=== PATIENT | male | born 1965 | race Caucasian/White ===

== ENCOUNTER → 2017-02-03 | Outpatient (CLI) | payer MEDICARE, MEDICAID ==
[~2017-02-03] MED LIST: ALLOPURINOL300 M1 PO; ASPIRIN 81MG TA81 MG PO; ATORVASTATIN CA10 M1 PO; CARVEDILOL 25MG25 MG PO; CIPRO 500MG TA500 MG PO; FLEXERIL10 MG PO; FUROSEMIDE 40MG40 M1 PO; GLIPIZIDE10 MG PO; Hydroxyzine10 MG PO; IBU-8800 MG PO; JANUVIA100 MG PO; K-DUR 20MEQ TA20 MEQ PO; LASIX20 MG PO; LISINOPRIL/HCTZ1 TA3 PO; LISINOPRIL2.5 M1 PO; LORATADINE 10MG10 M1 PO; LORTAB 5/500 501 TAB PO; LYRICA50 MG PO; MEDROL DOSEPAK4 MG PO; METFORMIN500 MG PO; MONODOX100 MG PO; NAPROSYN500 M1 PO; OMEPRAZOLE20 MG PO; PREDNISONE 20MG20 MG PO; SPIRONOLACTONE50 MG PO; TESSALON PERLE100 MG PO; TESSALON PERLE200 MG PO; TRAMADOL 50MG T50 MG PO; TRIAMCINOL15 GM/TUBE TP; VENTOLIN H0.09 MG/AC IH; VIBRAMYCIN 100100 MG PO; ZITHROMAX Z-PA250 M2 PO
[2017-02-03 09:47] LABS: BUN 30 mg/dL (7-18)
[2017-02-03 09:54] LABS: GFR (ESTIMATED) 54 ML/MIN (>60)
== END ==
LOC: LAB 08:56
PROVIDERS: Internal Medicine
DX: I42.9 Cardiomyopathy, unspecified (principal); I25.10 Atherosclerotic heart disease of native coronary artery without angina pectoris; I10 Essential (primary) hypertension; E11.9 Type 2 diabetes mellitus without complications

== ENCOUNTER → 2017-03-23 | Outpatient (CLI) | payer MEDICARE, MEDICAID ==
[~2017-03-23] MED LIST changes: +DEPO-TESTOS200 MG/M2 IM; +FUROSEMIDE80 M1 PO; +LOSARTAN POTAS100 MG PO; +ZESTRIL 5MG TABL5 MG PO
[2017-03-23 15:13] LABS: BUN 19 mg/dL (7-18)
[2017-03-23 15:17] LABS: GFR (ESTIMATED) 64 ML/MIN (>60)
== END ==
LOC: LAB 13:14
PROVIDERS: Internal Medicine
DX: I25.10 Atherosclerotic heart disease of native coronary artery without angina pectoris (principal); I10 Essential (primary) hypertension; E11.9 Type 2 diabetes mellitus without complications; G62.9 Polyneuropathy, unspecified

== ENCOUNTER 2017-03-28 22:19 | Emergency (ER) | payer MEDICARE, MEDICAID ==
[~2017-03-28] VITALS: Ht 180.3 cm; Wt 158.8 kg
[~2017-03-28 22:19] MED LIST changes: -FUROSEMIDE80 M1 PO
[2017-03-28] MEDS ORDERED: FUROSEMIDE80 M1 PO (22:32)
--- OUTSIDE RECORDS SUMMARY | 2017-03-28 22:51 | External Medical Summary Rpt ---
Author Author , LISA GONZALEZ Address Unknown Phone [email or web address] F?rsat Care Team Providers Care Supervisor Phosphoric Acid Name Role Phone [facility] Unavailable Unavailable [facility], [facility] Unavailable Unavailable SUP[facility], [facility] [employer] Unavailable Unavailable INC, [employer] PINZON BERNIE, PINZON BERNIE Unavailable Unavailable WARD TIFFANY, WARD Unavailable Unavailable TIFFANY RHODES, RHODES Unavailable Unavailable RHODES ALL, RHODES ALL Unavailable Unavailable SHEEHAN ERIBERTO, Unavailable Unavailable [facility] COOK MARGARITO, COOK MARGARITO Unavailable Unavailable CRISPEN FORD, CRISPEN Unavailable Unavailable FORD FRAZIER STEPHANIE, Unavailable Unavailable FRAZIER STEPHANIE JR DEMI, DEMI, Unavailable Unavailable JR QUEENIE, QUEENIE Unavailable Unavailable [facility] Unavailable Unavailable INC, [facility] Unavailable Unavailable HOSPITAL P, [facility], Unavailable Unavailable [facility] Unavailable Unavailable [facility], [facility] WILLIAM JR DWI, WILLIAM Unavailable Unavailable JR DWI ZULY GRE, Unavailable Unavailable ZULY GRE ZULY GRE, Unavailable Unavailable ZULY GRE JOVANY THOMAS ALISTAIR, Unavailable Unavailable MANZOKAEL THOMAS ALISTAIR [facility], Unavailable Unavailable PLL[facility], [facility], [facility] Un[facility] Un[facility], [facility] SCHACK BLADIMIR, SCHACK Unavailable Unavailable BLADIMIR ROBIN, ROBIN Unavailable Unavailable ROBIN STEPHANIE, ROBIN Unavailable Unavailable STEPHANIE SHANEHSAZ GLORIA, Unavailable Unavailable SHANEHSAZ GLORIA ERNESTO, ERNESTO Unavailable Unavailable ERNESTO MAT, Unavailable Unavailable ERNESTO MAT SOTINGEANU FLAQUITO, Unavailable Unavailable SOTINGEANU FLAQUITO [facility] Unavailable Unavailable [facility] Unavailable Unavailable HVAC REFRIGERATION TECHNICIAN ST[facility] HVAC REFRIGERATION TECHNICIAN ST [facility] Unavailable Unavailable PHYSICIANS, [facility] Unavailable Unavailable [facility]ANS EKG, [facility] E[facility], Unavailable Unavailable [facility], [facility], Unavailable Unavailable INC [facility], [facility], Unavailable Unavailable INC [facility] Unavailable Unavailable #584, [facility] Unavailable Unavailable #591, [facility] NADIA RUIZ Unavailable Unavailable FLAQUITO Purpose Continuity of Care Document - 11-22-2013 through 2016 Problems Code Diagnosis DOS Provider Status E1140 TYPE 2 DM 03-02-2017 A SPECIALTY WITH DIABETIC DIABETIC SUPPLIE NEUROPATHY UNSPECIFIED E1165 TYPE 2 03-02-2017 A SPECIALTY DIABETES DIABETIC MELLITUS SUPPLIE WITH HYPERGLYCEM IA E119 TYPE 2 02-19-2017 [facility] MELLITUS INC WITHOUT COMPLICATIO NS G629 POLYNEUROPA 02-19-2017 [facility] THY [facility] UNSPECIFIED INC I10 ESSENTIAL 02-19-2017 [facility] PRIMARY [facility] HYPERTENSIO INC N 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 [facility] 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 E1141 TYPE 2 02-16-2017 [facility] MELLITUS INC W/DIAB MONONEUROPA THY G71666 PAIN IN 02-16-2017 [facility], [facility] C80206 PAIN IN 02-16-2017 [facility] LEFT FOOT [facility], [facility] N289 DISORDER OF 02-16-2017 [facility], URETER [facility] UNSPECIFIED M47721 OTHER 02-11-2017 [facility] INC SPECIFIED ARTHRITIS RIGHT SHOULDER I5020 UNSPECIFIED 02-07-2017 [facility]ST[facility] CONGESTIVE GROUP HEART FAILURE M539 DORSOPATHY 01-25-2017 [facility], INC UNSPECIFIED M545 LOW BACK 01-25-2017 [facility] INC PAIN 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 [facility] N PHYSICIANS I255 ISCHEMIC 01-22-2017 ST CARDIOMYOPA [facility] THY PHYSICIANS I5022 CHRONIC 01-22-2017 ST SYSTOLIC [facility] CONGESTIVE PHYSICIANS HEART FAILURE Z6843 BODY MASS 01-22-2017 ST INDEX BMI ANNELIESE 50-59.9 PHYSICIANS ADULT G8929 OTHER 01-14-2017 ST CHRONIC [facility] PAIN PHYSICIANS M7541 IMPINGEMENT 01-14-2017 ST SYNDROME [facility] OF RIGHT PHYSICIANS SHOULDER N529 MALE 01-14-2017 ST ERECTILE [facility] DYSFUNCTION PHYSICIANS UNSPECIFIED R5382 CHRONIC 01-14-2017 ST FATIGUE ANN[facility] UNSPECIFIED PHYSICIANS S69585 PRESENCE 01-04-2017 [facility] AUTO PHYSICIANS IMPLANTABLE [place] H9319 TINNITUS 12-14-2016 UNSPECIFIED [facility] EAR PHYSICIANS E785 HYPERLIPIDE 11-16-2016 ST LOIS ANNELIESE UNSPECIFIED PHYSICIANS J449 CHRONIC 11-16-2016 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 PULMONARY PHYSICIANS DISEASE UNS M1000 IDIOPATHIC 11-16-2016 GOUT ANN[facility]IESE UNSPECIFIED PHYSICIANS SITE Z8679 PERSONAL 11-16-2016 ST HISTORY OT ANN[facility] DISEASES PHYSICIANS CIRCULATORY SYSTEM M2550 PAIN IN 10-29-2016 UNSPECIFIED [facility]IESE [facility] L309 DERMATITIS 10-18-2016 [facility] UNSPECIFIED [facility]ICIANS, PLLC Z720 TOBACCO USE 10-18-2016 [facility] INC E8352 HYPERCALCEM 09-29-2016 [facility] IA [facility] INC I509 HEART 09-29-2016 [facility] FAILURE [facility] UNSPECIFIED INC R0602 SHORTNESS 09-29-2016 [facility] Z951 PRESENCE OF 09-29-2016 [facility] RY BYPASS GRAFT I472 VENTRICULAR 08-10-2016 [facility] PH[facility]ANS TACHYCARDIA GROUP H538 OTHER 07-10-2016 [facility] VISUAL GRE DISTURBANCE S E118 TYPE 2 05-07-2016 [facility] DIABETES [facility] MELLITUS INC W/UNS COMPLICATIO NS Z9889 OTHER 05-07-2016 [facility]PROCEDU [facility] STATES R0600 DYSPNEA 05-06-2016 [facility] UNSPECIFIED [facility] INC T60069O OTH SPEC 05-06-2016 [facility] COMP VASC [facility] PROSTH DEVC INC IMPL GFT INIT ENC R000 TACHYCARDIA 05-05-2016 [facility] UNSPECIFIED GROUP Z0000 ENCOUNTER 04-29-2016 ST GEN ADULT [facility] MED EXAM PHYSICIANS W/O ABNORMAL FIND Z125 ENCOUNTER 04-29-2016 ST SCREENING [facility] MALIGNANT PHYSICIANS NEOPLASM PROSTATE H37581 ENCOUNTER 04-29-2016 ST FOR [facility] SCREENING PHYSICIANS FOR LIPOID DISORDERS Z1329 ENCOUNTER 04-29-2016 ST SCREEN OT ANN[facility] SUSPECTED PHYSICIANS ENDOCRN DISORDER I5023 ACUTE CHRON 04-23-2016 [facility] SYSTOLIC PHYSICIANS, HEART PLLC FAILURE J811 CHRONIC 04-23-2016 [facility] R0789 OTHER CHEST 12-02-2015 [facility] R1012 LEFT UPPER 12-02-2015 [facility] R109 UNSPECIFIED 12-02-2015 [facility] ABDOMINAL [facility]YSICIANS, PAIN PLLC V44530X STRAIN 12-02-2015 [facility] P TENDON ABD INITIAL ENCNTR N528 OTHER MALE 08-19-2015 ST ERECTILE [facility] DYSFUNCTION PHYSICIANS R7989 OTHER SPEC 08-19-2015 ABNORMAL [facility] FINDINGS PHYSICIANS BLOOD CHEMISTRY E03087 OTHER LONG 08-19-2015 ST TERM ANNELIESE CURRENT PHYSICIANS DRUG THERAPY E1142 TYPE 2 07-22-2015 DIABETES ANNELIESE MELLITUS PHYSICIANS W/DIAB POLYNEUROPA THY E6601 MORBID 07-22-2015 SEVERE ANN[facility]IESE OBESITY DUE PHYSICIANS TO EXCESS CALORIES E871 HYPO-OSMOLA 07-22-2015 ST LITY AND ANNELIESE HYPONATREMI PHYSICIANS A H45551 CUTANEOUS 07-22-2015 ST ABSCESS OF ANNELIESE LEFT LOWER PHYSICIANS LIMB Z09 ENC F/U 07-22-2015 ST EXAM AFTR ANNELIESE CMPL TX OTH PHYSICIANS THAN MALIG NEOPLSM Z4801 ENCOUNTER 07-21-2015 ST CHANGE/KAYLEE ANNELIESE CINDY PHYSICIANS SURGICAL WOUND DRESSING F64733 ENCOUNTER 07-21-2015 ST SURG ANNELIESE AFTERCARE PHYSICIANS FLW SURG SKIN&SUBQ TISS E1149 TYPE 2 07-19-2015 DIABETES ANNELIESE MELLITUS PHYSICIANS W/OTH DIAB NEURO COMP J56683 PAIN IN 07-19-2015 LEFT LEG ANNELIESE PHYSICIANS K5900 CONSTIPATIO 07-17-2015 ST N ANNELIESE UNSPECIFIED PHYSICIANS T08207 ENCOUNTER 07-17-2015 FOR ANN[facility]IES[facility] PREPROCEDUR PHYSICIANS AL EKG CARIOVASCUL AR EXAM E669 OBESITY 07-16-2015 ST. UNSPECIFIED ANNELIESE ZAHRA L41383 CUTANEOUS 07-16-2015 ST. ABSCESS OF ANNELIESE PERINEUM ZAHRA W07799 CELLULITIS 07-16-2015 ST. OF LEFT ANNELIESE LOWER LIMB ZAHRA N87113 CELLULITIS 07-16-2015 [facility] UNSPECIFIED PART OF LIMB Z7982 X RAY CONSULTANT 07-16-2015 ST. CURRENT USE ANNELIESE OF ASPIRIN ZAHRA J0100 ACUTE 07-10-2015 MAXILLARY ANN[facility]IES[facility] SINUSITIS PHYSICIANS UNSPECIFIED M5441 LUMBAGO 07-10-2015 WITH ANNELIESE SCIATICA PHYSICIANS RIGHT SIDE R600 LOCALIZED 07-10-2015 EDEMA [facility]IESE PHYSICIANS R630 ANOREXIA 07-10-2015 ANN[facility]E PHYSICIANS E1151 TYPE 2 DM 06-20-2015 W/DIAB [facility] HVAC REFRIGERATION TECHNICIAN ANGIOPATHY ST W/O GANGRENE [id number] IDIOPATHIC 06-20-2015 CHRONIC [facility] HVAC REFRIGERATION TECHNICIAN MULTIPL SITES W/O TOPHUS K529 NONINFECTIV 06-14-2015 E [facility] ITIS & COLITIS UNS E11.40 Type 2 diabetes mellitus with diabetic neuropathy, unspecified E11.65 Type 2 diabetes mellitus with hyperglycem ia E11.8 Type 2 diabetes mellitus with unspecified complicatio ns E78.5 Hyperlipide lois, unspecified E79.0 Hyperuricem ia without signs of inflammator y arthritis and tophaceous disease G62.9 Polyneuropa thy, unspecified G89.29 Other chronic pain H93.19 Tinnitus, unspecified ear I10 Essential (primary) hypertensio n I25.10 ATHSCL HEART DISEASE OF [place] CORONARY ARTERY W/O ANG PCTRS I25.5 Ischemic cardiomyopa thy I50.22 Chronic systolic (congestive ) heart failure I50.9 HEART FAILURE, UNSPECIFIED J18.9 PNEUMONIA, UNSPECIFIED ORGANISM J44.9 Chronic obstructive pulmonary disease, unspecified L30.9 DERMATITIS, UNSPECIFIED M10.00 Idiopathic gout, unspecified site M19.90 UNSPECIFIED OSTEOARTHRI TIS, UNSPECIFIED SITE M25.50 Pain in unspecified joint M25.511 Pain in right shoulder M54.5 Low back pain M79.671 PAIN IN RIGHT FOOT R06.00 DYSPNEA, UNSPECIFIED T14.8 OTHER INJURY OF UNSPECIFIED BODY REGION Z00.00 Encounter for general adult medical examination without abnormal findings Z12.5 Encounter for screening for malignant neoplasm of prostate Z13.29 Encounter for screening for other suspected endocrine disorder Z86.79 Personal history of other diseases of the circulatory system Allergies, Adverse Reactions, Alerts Clinical Alert Notifications Alert Diabetes: no influenza vaccine in the last 365 days Results Labs Lab Lab Date Result Refere Interp Status Commen Order Detail nces retati t Range on COMPREHENSIVE METABOLIC PANEL (11-22-2013 22:03) Clinica be complet l 014 obtaine ed Report 22:03 d. Clinica patient complet l 014 s, ed Report 22:03 alterna tive determi nations of GFR should Clinica muscle complet l 014 mass, ed Report 22:03 or during pregnan cy. In these Clinica malnutr complet l 014 ition ed Report 22:03 or obesity , loss of limbs, abnorma l Clinica recent complet l 014 dialysi ed Report 22:03 s, extreme s in body size, severe Clinica in complet l 014 patient ed Report 22:03 s with rapidly changin g kidney functio n, Clinica populat complet l 014 ion), ed Report 22:03 and age. GFR estimat es are unrelia ble Clinica race (* complet l 014 GFR AA ed Report 22:03 is for the Oma n Clinica Calcula complet l 014 barbara ed Report 22:03 using MDRD formula based on gender, [facility] V <15 complet l 014 End-sta ed Report 22:03 ge kidney failure Clinica functio complet l 014 n ed Report 22:03 Clinica IV complet l 014 15-29 ed Report 22:03 Severel y reduced kidney Clinica III complet l 014 30-59 ed Report 22:03 Moderat jennifer reduced kidney Clinica kidney complet l 014 functio ed Report 22:03 n Clinica I/II complet l 014 >60 ed Report 22:03 Normal/ Mildly reduced Clinica Stage complet l 014 eGFR ed Report 22:03 Descrip tion Clinica Referen complet l 014 ce ed Report 22:03 Ranges for eGFR (calcul ated) Clinica (1) complet l 014 eGFR ed Report 22:03 Interpr etation : Disease State Clinica 1.73 m2 complet l 014 ed Report 22:03 Clinic GFR AA* complet l 014 >60.0 ed Report 22:03 mL/min/ [facility] GFR complet l 014 >60.0 ed Report 22:03 (1) mL/min/ [facility] ANIONGA complet l 014 P 12 ed Report 22:03 [facility] CO2 28 complet l 014 mmol/L ed Report 22:03 23-31 [facility] CL 96 L complet l 014 mEq/L ed Report 22:03 98-107 Clinic K 3.6 complet l 014 mEq/L ed Report 22:03 3.5-5.0 [facility] NA 132 complet l 014 L mEq/L ed Report 22:03 136-145 [facility] CREA complet l 014 1.2 ed Report 22:03 mg/dL 0.8-1.3 [facility] BUN 12 complet l 014 mg/dL ed Report 22:03 7-21 [facility] complet l 014 014 ed Report 22:03 22:03 GLUCOSE 250 H mg/dL 80-99 [facility] Collect complet l 014 ion ed Report 22:03 Date Result Units Referen ce [facility] AG complet l 014 Ratio ed Report 22:03 0.8 [facility] B/CR 10 complet l 014 ed Report 22:03 [facility] TBIL complet l 014 0.18 L ed Report 22:03 mg/dL 0.20-1. 00 Clinic AST complet l 014 SGOT 12 ed Report 22:03 L U/L 18-43 Clinica ALT complet l 014 SGPT 24 ed Report 22:03 U/L 13-50 Clinica ALK complet l 014 PHOS ed Report 22:03 114 U/L 50-170 Clinica ALBUMIN complet l 014 3.1 L ed Report 22:03 gm/dL 3.4-4.5 Clinica TOT complet l 014 PROT ed Report 22:03 7.0 gm/dL 6.2-7.8 Clinica CA 8.4 complet l 014 L mg/dL ed Report 22:03 8.7-9.9 TROPONIN I,TORY (IN HOUSE) (11-22-2013 22:03) Clinica >1.50 complet l 014 ng/ml ed Report 22:03 Indicat [facility] 0.05 - complet l 014 1.50 ed Report 22:03 ng/ml [place] e [facility] 0.00 - complet l 014 0.04 ed Report 22:03 ng/ml Negativ e Clinica (1) complet l 014 Troponi ed Report 22:03 n I Referen ce Values [facility] complet l 014 014 ed Report 22:03 22:03 TROP I 0.15 H (1) ng/mL 0.00-0. 10 [facility] Collect complet l 014 ion ed Report 22:03 Date Result Units Referen ce CBC W/DIFF (11-22-2013 22:03) [facility] MCH complet l 014 30.4 pg ed Report 22:03 27.0-33 .0 Clinica PLATELE complet l 014 T 156 X ed Report 22:03 10\E\S\ E\3 150-450 Clinica HCT complet l 014 38.1 L ed Report 22:03 % 40.0-50 .0 [facility] HGB complet l 014 12.7 L ed Report 22:03 gm/dL 13.5-17 .2 Clinica RBC complet l 014 4.17 L ed Report 22:03 X 10\E\S\ E\6 4.50-5. 70 Clinica complet l 014 014 ed Report 22:03 22:03 WBC 12.8 H X 10\E\S\ E\3 4.0-10. 5 Clinica Collect complet l 014 ion ed Report 22:03 Date Result Units Referen ce Clinica LYMPH complet l 014 2.9 X ed Report 22:03 10\E\S\ E\3 0.7-4.3 Clinica BASO complet l 014 0.6 % ed Report 22:03 0.0-2.0 Clinica % complet l 014 ed Report 22:03 Clinica EOSIN complet l 014 0.6 % ed Report 22:03 0.0-4.0 Clinica MONO complet l 014 5.2 % ed Report 22:03 0.0-13. 0 Clinica LYMPH complet l 014 22.9 % ed Report 22:03 17.0-45 .0 Clinica NEUT complet l 014 70.7 H ed Report 22:03 % 50.0-70 .0 Clinica MPV complet l 014 10.0 fl ed Report 22:03 7.0-10. 6 Clinica RDW complet l 014 13.2 % ed Report 22:03 12.1-15 .3 Clinica MCV complet l 014 91.4 fl ed Report 22:03 80.0-95 .0 Clinica NRBC 0 complet l 014 0-0 ed Report 22:03 Clinica MCHC complet l 014 33.3 ed Report 22:03 gm/dL 33.2-35 .3 Clinica EOSIN complet l 014 0.1 X ed Report 22:03 10\E\S\ E\3 0.0-0.8 Clinica # complet l 014 ed Report 22:03 Clinica MONO complet l 014 0.7 X ed Report 22:03 10\E\S\ E\3 0.2-1.2 Clinica NEUT complet l 014 9.0 H X ed Report 22:03 10\E\S\ E\3 1.5-7.1 Clinica BASO complet l 014 0.1 X ed Report 22:03 10\E\S\ E\3 0.0-0.1 Procedures Procedure DOS Code Location Performer Comment BLD GLU A4253 A A TEST/REAG 7 SPECIALTY SPECIALTY T STRIPS DIABETIC DIABETIC HOME BLD SUPPLIE SUPPLIE GLU MON-50 NORMAL A4256 A A LOW AND 7 SPECIALTY SPECIALTY HIGH DIABETIC DIABETIC CALIBRATO SUPPLIE SUPPLIE R SOLUTION/ CHIPS LANCETS A4259 A A PER BOX 7 SPECIALTY SPECIALTY OF 100 DIABETIC DIABETIC SUPPLIE SUPPLIE ECG 85202 [facility] ROUTINE 7 [facility] ECG INC INC W/LEAST 12 LDS TRCG ONLY W/O I&R THER 21069 [facility] PROPH/DX 7 [facility] NJX IV INC INC PUSH SINGLE/1S T SBST/DRUG SEDIMENTA 69095 [facility] TIORLANDO RATE 7 [facility] RBC INC INC NON-AUTOM ATED COMPREHEN 43078 [facility] SIVE 7 [facility] METABOLIC INC INC PANEL THERAPEUT 84589 [facility] IC 7 [facility] INJECTION INC [place] [address] [facility] BLOOD/URI 7 [facility] C ACID INC INC BLOOD 11087 [facility] COUNT 7 [facility] COMPLETE INC INC AUTO&AUTO DIFRNTL WBC C-REACTIV 31046 [facility] E PROTEIN 7 [facility] INC INC SEWHO L3960 ZEN ZALDIVAR, ABDUCT 7 INC INC PSTN AIRPLANE DESN PREFAB W/FIT&ADJ DIAB ONLY A5500 CLINIC CLINIC FIT CSTM 7 PHARMACY PHARMACY PREP&SPL SHOE MX DNSITY INSRT FOR DIAB A5513 CLINIC CLINIC ONLY MX 7 PHARMACY PHARMACY DNSITY INSRT CSTM MOLD CSTM EA INTERROGA 74967 [facility] TION EVAL 7 PHYSICIAN REMOTE S GROUP </30 D CV MNTR SYS LSO L0650 SYMMARLIN, SYMED, SAGITTAL- 7 INC INC CORONAL CONTRL RIGD ANT POST PANELS THERAPEUT 47[address] ST ROBIN IC 7 ANNELIESE PROPHYLAC TIC/DX PHYSICIAN INJECTION S SUBQ/IM COLLECTIO 21334 ST ROBIN N VENOUS 7 ANNELIESE BLOOD VENIPUNCT PHYSICIAN URE S INJ J0[address] BETAMETHA 7 ANNELIESE ANNELIESE SONE ACETATE & PHYSICIAN PHYSICIAN S S PHOSPHATE [address] IN[address] 7 ANNELIESE ANNELIESE METHYLPRE DNISOLONE PHYSICIAN PHYSICIAN ACETATE S [place] [address] [place] [address] TESTOSTER 7 ANNELIESE ANNELIESE [facility] EDGE E EDGE HEMOGLOBI [address] ST ROBIN N 7 ANNELIESE GLYCOSYLA BARBARA A1C PHYSICIAN S INTERROGA 65162 [facility] TION EVAL 7 PHYSICIAN REMOTE S GROUP </90 D 1/2/SUPPLY CHAIN SPECIALIST LD DFB INTERROGA 62064 [facility] TION EVAL 7 PHYSICIAN REMOTE S GROUP </30 D CV MNTR SYS [facility] A4258 A A WERED 7 SPECIALTY SPECIALTY DEVICE DIABETIC DIABETIC FOR SUPPLIE SUPPLIE LANCET EACH LANCETS A4259 A A PER BOX 7 SPECIALTY SPECIALTY OF 100 DIABETIC DIABETIC SUPPLIE SUPPLIE NORMAL A4256 A A LOW AND 7 SPECIALTY SPECIALTY HIGH DIABETIC DIABETIC CALIBRATO SUPPLIE SUPPLIE R SOLUTION/ CHIPS BLD GLU A4253 A A TEST/REAG 7 SPECIALTY SPECIALTY T STRIPS DIABETIC DIABETIC HOME BLD SUPPLIE SUPPLIE GLU MON-50 INTERROGA 56185 [facility] TION EVAL 7 PHYSICIAN REMOTE S GROUP </30 D CV MNTR SYS COMPREHEN [address] SIVE 7 ANNELIESE COY METABOLIC PANEL HEALTHCAR HEALTHCAR E EDGE E EDGE DRUG TEST G0480 ST DEFINITV [address] ID METH P HEALTHCAR HEALTHCAR DAY 1-7 E EDGE E EDGE DRUG CL LIPID [address] PANEL 7 ANNELIESE ANNELIESE HEALTHCAR HEALTHCAR E EDGE E EDGE DRUG TEST [address] PRSMV 7 ANNELIESE ANNELIESE INSTRMNT CHEMISTRY HEALTHCAR HEALTHCAR E EDGE E EDGE ANALYZERS HEMOGLOBI [address] N 7 ANNELIESE COY GLYCOSYLA BARBARA A1C HEALTHCAR HEALTHCAR E EDGE E EDGE INTERROGA 80069 [facility] TION EVAL 7 PHYSICIAN REMOTE S GROUP </30 D CV MNTR SYS ECG 87238 [facility] ROUTINE 7 [facility] ECG INC INC W/LEAST 12 LDS TRCG ONLY W/O I&R BASIC 43287 [facility] BROWNON METABOLIC 7 [facility] PANEL INC INC CALCIUM TOTAL COLLECTIO 63685 [facility] BROWNON N VENOUS 7 [facility] [place] [address] CAR[facility]IEN VELAZQUE[facility] FREE 7 [facility] [place] [address] CAROLINE CAROLINE THYROID 7 [facility] STIMULATI INC INC NG HORMONE TSH RADIOLOGI 69548 [facility] C EXAM 7 MEDICAL CHEST 2 IMAGING VIEWS ASS FRONTAL&L ATERAL HEPATIC 51615 [facility] FUNCTION 7 [facility] PANEL INC INC NATRIURET 61855 [facility] IC 7 [facility] PEPTIDE INC INC BLOOD 31312 CAR[facility]INE BROWNON COUNT 7 [facility] COMPLETE INC INC AUTO&AUTO DIFRNTL WBC INTERROGA 07068 [facility] TION EVAL 6 PHYSICIAN REMOTE S GROUP </90 D 1/2/SUPPLY CHAIN SPECIALIST LD DFB INTERROGA 08905 [facility] TION EVAL 6 PHYSICIAN REMOTE S GROUP </30 D CV MNTR SYS ECG 45867 [facility] ROUTINE 6 PHYSICIAN ECG S GROUP W/LEAST 12 LDS I&R ONLY OPHTH 39310 [facility] 6 GRE GRE XM&EVAL COMPRE NEW PT 1/> VST ECG 07646 [facility] ROUTINE 6 [facility] ECG INC INC W/LEAST 12 LDS TRCG ONLY W/O I&R INTERROGA 10297 H ERNESTO TION EVAL 6 PHYSICIAN MAT REMOTE S GROUP </30 D CV MNTR SYS PRGRMG 54695 [facility] EVAL 6 PHYSICIAN MAT IMPLANTAB S GROUP LE IN PRSN DUAL LEAD DFB LEAD C1898 [facility] PACEMKR 6 [facility] OTH THAN INC INC TRNS VDD SINGLE PASS RADIOLOGI 67814 [facility] C 6 [facility] EXAMINATI INC INC ON CHEST SINGLE VIEW FRONTAL SHOULDER L3670 [facility] 6 TECHNOLOG TECHNOLOG ACROMIO/C [place]ES [place]IC[place] [address] [facility] INFUSION 6 [facility] THERAPY INC INC PROPHYLAX IS/DX EA HOUR INJECTION J2405 [facility] 6 [facility] ONDANSETR INC INC ON HCL PER 1 MG CARDIOVER C1721 [facility] VELAZ[facility]Z TER-DEFIB 6 [facility] RILLATOR INC INC DUAL CHAMBER GLUC BLD 43013 [facility] GLUC MNTR 6 [facility] DEV INC INC CLEARED FDA SPEC HOME USE THERAPEUT 98374 [facility] V[facility] IC 6 [facility] INJECTION INC INC IV PUSH EACH NEW DRUG LEAD C1777 [facility] V[facility] CARDIOVER 6 [facility] T-DEFIB [place] [id number] CAROLINE VELAZQUEZ INFUSION 6 [facility] THERAPY/P INC INC ROPHYLAXI S /DX 1ST TO 1 HR INSJ/RPLC 45581 [facility] MT PERM 6 PHYSICIAN MAT DFB S GROUP W/TRNSVNS LDS 1/DUAL CHMBR COLLECTIO 67750 CAROLINE VELAZQUEZ N VENOUS 6 [facility] BLOOD INC INC VENIPUNCT URE BASIC 51652 CAROLINE VELAZQUEZ METABOLIC 6 [facility] PANEL INC INC CALCIUM TOTAL ECG 68838 CAROLINE VELAZQUEZ ROUTINE 6 [facility] ECG INC INC W/LEAST 12 LDS TRCG ONLY W/O I&R ECG 00659 [facility] ERNEST[facility] ROUTINE 6 PHYSICIAN MAT ECG S GROUP W/LEAST 12 LDS I&R ONLY ECHO 38296 CAROLINE VELAZQUEZ TTHRC R-T 6 [facility] 2D INC INC W/WOM-MOD E COMPL SPEC&COLR D MYOCARDIA 04951 [facility]ELAZ[facility]Z L SPECT 6 [facility] MULTIPLE INC INC STUDIES CV STRS 14552 [facility] ROBI PIMENTEL TST 6 PHYSICIAN XERS&/OR S GROUP RX CONT ECG W/O I&R CV STRS 46658 [facility] VELAZQUEZ TST 6 [facility] XERS&/OR INC INC RX CONT ECG TRCG ONLY INJECTION [id number] CAR[facility] VELAZQUEZ 6 [facility] REGADENOS INC INC ON 0.1 MG TECHNETIU A9500 CAROLINE VELAZQUEZ M TC-99M 6 [facility] SESTAMIBI INC INC DX PER STUDY DOSE COLLECTIO [address]8910 ST WARD N VENOUS 6 ANNELIESE TIFFANY BLOOD VENIPUNCT PHYSICIAN URE S ALBUMIN [address] URINE 6 ANNELIESE ANNELIESE MICROALBU MED CTR MED CTR MIN HVAC REFRIGERATION TECHNICIAN ST HVAC REFRIGERATION TECHNICIAN ST QUANTIATI VE LIPID [address] PANEL 6 ANNELIESE ANNELIESE MED CTR MED CTR HVAC REFRIGERATION TECHNICIAN ST HVAC REFRIGERATION TECHNICIAN ST COMPREHEN [address] SIVE 6 ANNELIESE ANNELIESE METABOLIC MED CTR MED CTR PANEL HVAC REFRIGERATION TECHNICIAN ST HVAC REFRIGERATION TECHNICIAN ST CREATININ [address] E OTHER 6 ANNELIESE ANNELIESE SOURCE MED CTR MED CTR HVAC REFRIGERATION TECHNICIAN ST HVAC REFRIGERATION [place] [address] THYROID 6 ANNELIESE ANNELIESE STIMULATI MED CTR MED CTR NG HVAC REFRIGERATION TECHNICIAN ST HVAC REFRIGERATION TECHNICIAN ST HORMONE TSH HEMOGLOBI [address] N 6 ANNELIESE ANNELIESE GLYCOSYLA MED CTR MED CTR BARBARA A1C HVAC REFRIGERATION TECHNICIAN ST HVAC REFRIGERATION TECHNICIAN ST ANNUAL G0439 ST WARD WELLNESS 6 ANNELIESE TIFFANY VST; PERSONALI PHYSICIAN ZED PPS S SUBSQT VST BLOOD [address] COUNT 6 ANNELIESE ANNELIESE COMPLETE MED CTR MED CTR AUTOMATED HVAC REFRIGERATION TECHNICIAN ST HVAC REFRIGERATION TECHNICIAN ST PROSTATE [id number] CANCER 6 ANNELIESE ANNELIESE SCREENING MED CTR MED CTR ; PSA HVAC REFRIGERATION TECHNICIAN ST HVAC REFRIGERATION TECHNICIAN ST TEST NATRIURET 63059 CAROLINE VELAZQUEZ IC 6 [facility] PEPTIDE INC INC ECG 64815 [facility] ROUTINE 6 PHYSICIAN MAT ECG S GROUP W/LEAST 12 LDS I&R ONLY ECG 58347 CAROLINE VELAZQUEZ ROUTINE 6 [facility] ECG INC INC W/LEAST 12 LDS TRCG ONLY W/O I&R COLLECTIO 23996 CAROLINE VELAZQUEZ N VENOUS 6 [facility] BLOOD INC INC VENIPUNCT URE BASIC 31616 CAROLINE VELAZQUEZ METABOLIC 6 [facility] PANEL INC INC CALCIUM TOTAL COMPREHEN 47734 CAROLINE VELAZQUEZ SIVE 6 [facility] METABOLIC INC INC PANEL FIBRIN 42009 CAROLINE VELAZQUEZ DGRADJ 6 [facility] PRODUCTS INC INC D-DIMER QUAL/SEMI TORY ECG 04297 CAROLINE VELAZQUEZ ROUTINE 6 [facility] ECG INC INC W/LEAST 12 LDS TRCG ONLY W/O I&R RADIOLOGI 73026 [facility] ALL C 6 MEDICAL EXAMINATI IMAGING ON CHEST ASS SINGLE VIEW FRONTAL CREATINE 58845 CAROLINE VELAZQUEZ KINASE 6 [facility] [place] [address] CAROLINE VELAZQUEZ LIPASE 6 [facility] INC INC THER 97359 CAROLINE VELAZQUEZ PROPH/DX 6 [facility] NJX IV INC INC PUSH SINGLE/1S T SBST/DRUG ECG 70114 CAROLINE THOMAS JR ROUTINE 6 [facility] W/LEAST P 12 LDS I&[place] [address] CAROLINE VELAZQUEZ THYROID 6 [facility] STIMULATI INC INC NG HORMONE TSH RADIOLOGI 98180 CAROLINE VELAZQUEZ C EXAM 6 [facility] CHEST 2 INC INC VIEWS FRONTAL&[place] [address] CAROLINE VELAZQUEZ LACTATE 6 [place] [address] CAROLINE VELAZQUEZ AMYLASE 6 [facility] INC INC CREATINE 31827 CAROLINE VELAZQUEZ KINASE MB 6 [facility] [place] [address] CAROLINE VELAZQUEZ THYROXINE 6 [facility] TOTAL INC INC NATRIURET 45286 CAROLINE VELAZQUEZ IC 6 [facility] PEPTIDE INC INC THYROID 52650 CAROLINE VELAZQUEZ HORM 6 [facility] UPTK/THYR INC [place] [address] CAROLINE VELAZQUEZ TROPONIN 6 [facility] QUANTITAT INC INC LAUREL BLOOD 65397 CAROLINE VELAZQUEZ COUNT 6 [facility] COMPLETE INC INC AUTO&AUTO DIFRNTL WBC CULTURE 67956 CAROLINE VELAZQUEZ BACTERIAL 6 [facility] BLOOD INC INC AEROBIC W/[place] [address] CAROLINE VELAZQUEZ TROPONIN 6 [facility] QUANTITAT INC INC LAUREL BLOOD 48238 CAROLINE VELAZQUEZ COUNT 6 [facility] COMPLETE INC INC AUTO&AUTO DIFRNTL WBC NATRIURET 62410 CAROLINE VELAZQUEZ IC 6 [facility] PEPTIDE INC INC CREATINE 70391 CAROLINE CAROLINE KINASE MB 6 [facility] [address] CAROLINE VELAZQUEZ AMYLASE 6 [facility] INC INC RADIOLOGI 45463 CAROLINE VELAZQUEZ C EXAM 6 [facility] CHEST 2 INC INC VIEWS FRONTAL&L ATERAL LOCM Q9967 CAROLINEORLANDO VELAZQUEZ [phone] 6 [facility] MG/ML INC INC IODINE CONCENTRA TION PER ML ECG 94726 CAROLINE THOMAS JR ROUTINE [address] [facility] W/LEAST P 12 LDS I&R ONLY URNLS DIP 68858 CAROLINEORLANDO VELAZQUEZ 6 [facility] STICK/TAB INC [place] [address] CAROLINE VELAZQUEZ ABDOMEN & 6 [facility] PELVIS INC INC W/[place] [address] CAROLINE VELAZQUEZ LIPASE 6 [facility] INC INC CREATINE 33745 CAROLINE VELAZQUEZ KINASE 6 [facility] TOTAL INC INC ECG 21367 CAROLINE VELAZQUEZ ROUTINE 6 [facility] ECG INC INC W/LEAST 12 LDS TRCG ONLY W/O I&R FIBRIN 39807 CAROLINE VELAZQUEZ DGRADJ 6 [facility] PRODUCTS INC INC D-DIMER QUAL/SEMI TORY COMPREHEN 27179 CAROLINE VELAZQUEZ SIVE 6 [facility] METABOLIC INC INC PANEL BLD GLU A4253 [facility] TEST/REAG 6 [facility]Y PHARMACY T STRIPS #591 #591 HOME BLD GLU 50 BLD GLU A4253 [facility] TEST/REAG 5 PHARMACY PHARMACY T STRIPS #591 #591 HOME BLD GLU 50 LANCETS A4259 [facility] PER BOX 5 [facility]Y PHARMACY OF 100 #591 #[address] [facility] 5 ANNELIESE ERIBERTO METHYLPRE DNISOLONE PHYSICIAN ACETATE S [address] [facility] IC 5 ANNELIESE ERIBERTO PROPHYLAC TIC/DX PHYSICIAN INJECTION S SUBQ/IM COLLECTIO 59928 [facility] N VENOUS 5 ANNELIESE MIC BLOOD VENIPUNCT PHYSICIAN URE S BASIC [address] METABOLIC 5 ANNELIESE COY PANEL MED CTR MED CTR CALCIUM HVAC REFRIGERATION TECHNICIAN ST HVAC REFRIGERATION TECHNICIAN ST TOTAL PHYS CERT G0180 [facility] MCR-COVR 5 ANNELIESE MIC JAROD [facility] SRVC PER PHYSICIAN CERT PRD S SBSQ 47849 [facility] 5 ANNELIESE GLORIA CARE/DAY 25 PHYSICIAN MINUTES S SBSQ 34655 [facility] 5 ANNELIESE CARE/DAY 25 PHYSICIAN MINUTES S ANES 31474 INDEPENDE CRISPEN NERVE 5 NT [facility]D [facility] ANESTHESI TENDON OLOGIST FASCIA & BURSAE UPPER LEG ECG 96675 [facility] ROUTINE 5 ANNELIESE FLAQUITO ECG W/LEAST PHYSICIAN 12 LDS S EKG I&R ONLY INCISION 79275 [facility] & 5 ANNELIESE MIC DRAINAGE ABSCESS PHYSICIAN COMPLICAT S ED/MULTIP LE INITIAL 79774 [facility] 5 ANNELIESE STEPHANIE CARE/DAY 50 PHYSICIAN MINUTES S GROUND A0425 RURAL/MET RURAL/MET MILEAGE 5 RO RO PER AMBULANCE AMBULANCE STATUTE MILE INJECTION J2270 [facility] MORPHINE 5 ANNELIESE ANNELIESE SULFATE ZAHRA ZAHRA UP TO 10 MG THERAPEUT 03520 [facility] IC 5 [facility] INJECTION [place] [address] [facility] INFUSION 5 [facility] THERAPY/P ZAHRA ZAHRA ROPHYLAXI S /DX 1ST TO 1 HR URNLS DIP 21147 [facility] 5 [facility] STICK/TAB ZAHRA ZAHRA LET RGNT AUTO W/O MICROSCOP Y LOCM Q9967 [facility] [phone] 5 [facility] MG/ML ZAHRA ZAHRA IODINE [place] [address] [facility] LACTATE 5 [facility] ZAHRA ZAHRA INJECTION J2405 [facility] 5 [facility] ONDANSETR ZAHRA ZAHRA ON HCL PER 1 MG INJECTION J3370 [facility] 5 [facility] VANCOMYCI ZAHRA ZAHRA N HCL 500 MG BASIC 04121 [facility] METABOLIC 5 [facility] PANEL ZAHRA ZAHRA CALCIUM TOTAL COLLECTIO 54103 [facility] N VENOUS 5 [facility] BLOOD ZAHRA ZAHRA VENIPUNCT URE RADEX 21362 [facility] SPINE 5 [facility] LUMBOSACR ZAHRA ZAHRA AL MINIMUM [address] PELVIS 03731 [facility] 5 [facility] W/[place] [address] [facility] INFUSION 5 [facility] HYDRATION ZAHRA ZAHRA EACH ADDITIONA L HOUR AMB A0426 RURAL/MET RURAL/MET SERVICE 5 RO RO ALS AMBULANCE AMBULANCE NONEMERGE NCY TRANSPORT LEVEL 1 5% J7060 [facility] DEXTROSE/ 5 [facility] WATER ZAHRA ZAHRA THER 85643 [facility] PROPH/DX 5 [facility] NJX EA ZAHRA ZAHRA SEQL IV PUSH SBST/DRUG FAC BLOOD [address] COUNT 5 ANNELIESE GUTIERREZTH COMPLETE ZAHRA ZAHRA AUTO&AUTO DIFRNTL WBC CULTURE [address] BACTERIAL 5 ANNELIESE GUTIERREZTH BLOOD ZAHRA ZAHRA AEROBIC W/ID ISOLATES THERAPEUT 23785 ST [facility] IC 5 ANNELIESE ERIBERTO PROPHYLAC TIC/DX PHYSICIAN INJECTION S SUBQ/IM INJECTION J1885 ST ST 5 ANNELIESE COY KETOROLAC PHYSICIAN PHYSICIAN TROMETHAM S S INE PER [address] [facility] 5 ANNELIESE ERIBERTO STICK/TAB LET RGNT PHYSICIAN NON-AUTO S W/O MICRSCP URNLS DIP 22153 ST [facility] 5 ANNELIESE THOMAS ALISTAIR STICK/TAB LET RGNT PHYSICIAN NON-AUTO S W/O MICRSCP HOME E0607 [facility] BLOOD 5 PHARMACY PHARMACY GLUCOSE #584 #5[address] E OTHER 5 ANNELIESE COY SOURCE MED CTR MED CTR HVAC REFRIGERATION TECHNICIAN ST HVAC REFRIGERATION TECHNICIAN ST BLD GLU A4253 [facility] TEST/REAG 5 PHARMACY PHARMACY T STRIPS #584 #584 HOME BLD GLU MON-[address] B[address] [facility] GLUC MNTR 5 ANNELIESE THOMAS ALISTAIR DEV CLEARED PHYSICIAN FDA SPEC S HOME USE LANCETS A4259 [facility] PER BOX 5 PHARMACY PHARMACY OF 100 #584 #[address]CTION [address] 5 ANNELIESE COY KETOROLAC PHYSICIAN PHYSICIAN TROMETHAM S S INE PER [address] [facility] IC 5 ANNELIESE THOMAS ALISTAIR PROPHYLAC TIC/DX PHYSICIAN INJECTION S SUBQ/IM ALBUMIN [address] URINE 5 ANNELIESE COY MICROALBU MED CTR MED CTR MIN HVAC REFRIGERATION TECHNICIAN ST HVAC REFRIGERATION TECHNICIAN ST QUANTIATI VE LIPID [address] PANEL 5 ANNELIESE LAURENBETH MED CTR MED CTR HVAC REFRIGERATION TECHNICIAN ST HVAC [place] [address] BLOOD/URI 5 ANNELIESE COY C ACID MED CTR MED CTR HVAC REFRIGERATION TECHNICIAN ST HVAC REFRIGERATION TECHNICIAN ST COMPREHEN [address] SIVE 5 ANNELIESE COY METABOLIC MED CTR MED CTR PANEL HVAC REFRIGERATION TECHNICIAN ST HVAC REFRIGERATION TECHNICIAN ST HEMOGLOBI [address] N 5 ANNELIESE COY GLYCOSYLA MED CTR MED CTR BARBARA A1C HVAC REFRIGERATION TECHNICIAN ST HVAC REFRIGERATION TECHNICIAN ST Encounters Encounter Start End Date Code Location Performer Type Date HOSPITAL [facility] - 7 7 [facility] OUTPATIEN INC [facility] CAROLINE - 7 7 [facility] OUTPATIEN [facility] T EMERGENCY 45024 NEERAJ JEROME 7 7 PHYSICIAN DEPARTMEN S, PLLC T VISIT HIGH/URGE NT SEVERITY OFFICE 20143 [facility] 7 7 ANNELIESE T VISIT 25 PHYSICIAN MINUTES S OFFICE 79339 [facility] 7 ANNELIESE T VISIT 25 PHYSICIAN MINUTES S HOSPITAL [facility] OTHER 7 7 ANNELIESE HEALTHCAR E EDGE OFFICE 38524 [facility] 7 7 ANNELIESE T VISIT 15 PHYSICIAN MINUTES S OFFICE 02295 [facility] 7 7 ANNELIESE T VISIT 25 PHYSICIAN [address]ES S [facility] [address] OTHER 7 7 ANNELIESE [facility]ALTH[facility] EDGE EMERGENCY 18643 NEERAJ SIMMS 7 7 PHYSICIAN JR DEPARTMEN S, PLLC T VISIT MODERATE SEVERITY EMERGENCY 02879 [facility] 7 7 [facility] DEPARTMEN INC T VISIT LOW/MODER SEVERITY HOSPITAL [facility] - 7 7 [facility] OUTPATIEN [facility] CAROLINE - 7 7 [facility] OUTPATIEN INC [facility] CAROLINE - 6 6 [facility]IEN [facility] CAR[facility] 6 6 [facility] OUTPATIEN [facility] T HOSPITAL CAROLINE - OTHER 6 6 [facility] INC OFFICE 15442 [facility] OUTPATIEN 6 6 PHYSICIAN MAT T VISIT S GROUP 25 MINUTES HOSPITAL CAR[facility] - 6 6 [facility] OUTPATIEN [facility] HOSPITAL CAROLINE - 6 6 [facility] OUTPATIEN [facility] HOSPITAL ST - OTHER 6 6 ANNELIESE MED CTR HVAC REFRIGERATION TECHNICIAN ST OFFICE 40971 [facility] OUTPATIEN 6 6 PHYSICIAN MAT T NEW 60 S GROUP MINUTES HOSPITAL CAR[facility] - 6 6 [facility]PATI[facility] HOSP[facility] CAR[facility] - 6 6 [facility] T EMERGENCY 36552 CAR[facility]INE 6 6 [facility] T VISIT HIGH/URGE NT SEVERITY EMERGENCY 87734 NEERAJ SOTINGEAN DEPT 6 6 PHYSICIAN U FLAQUITO VISIT S, [facility] HIGH SEVERITY& THREAT [facility] EMERGENCY 59687 NEERAJ SOTINGEAN DEPT 6 6 PHYSICIAN U FLAQUITO VISIT S, [facility] HIGH SEVERITY& THREAT [facility] HOSPITAL CAROLINE - 6 6 [facility] T EMERGENCY 16344 CAR[facility]INE 6 6 [facility] T VISIT MODERATE SEVERITY OFFICE 67762 ST [facility] OUTPATIEN 5 5 ANNELIESE ERIBERTO T VISIT 25 PHYSICIAN MINUTES S OFFICE 94[address] [facility] OUTPATIEN 5 5 ANNELIESE STEPHANIE T VISIT 25 PHYSICIAN MINUTES S [facility]OSPITAL ST - OTHER 5 5 ANNELIESE MED CTR HVAC REFRIGERATION TECHNICIAN ST OFFICE 63884 [facility] OUTPATIEN 5 5 ANNELIESE STEPHANIE T VISIT [address] ACCESS 5 5 [facility] Z[facility] EMERGENCY [address]24 ST. DEPT 5 5 MATTHEWS VISIT ZAHRA HIGH SEVERITY& THREAT FUNCJ OFFICE 36140 ST [facility] OUTPATIEN 5 5 ANNELIESE WEI T VISIT 25 [facility] ST - OTHER 5 5 [facility] CTR HVAC REFRIGERATION TECHNICIAN OFFICE [address]386 ST [facility] OUTPATIEN 5 5 ANNELIESE SAINZ T VISIT 25 [facility] ST - OTHER 5 5 [facility] CTR HVAC REFRIGERATION TECHNICIAN OFFICE 66378 ST AD[facility] OUTPATIEN 5 5 ANNELIESE GARRISON T VISIT 25 PHYSICIAN [facility]
--- OUTSIDE RECORDS SUMMARY | 2017-03-28 22:51 | External Medical Summary Rpt ---
Author Author , LISA GONZALEZ Address Unknown Phone [email or web address] Care Team Providers Care Post Doctoral Fellow Name Role Phone [facility] Unavailable [...] Unavailable Unavailable JR QUEENIE, QUEENIE Unavailable Unavailable [facility] Unavailable Unavailable INC, [facility] Unavailable Unavailable HOSPITAL P, [facility], Unavailable Unavailable [facility] Unavailable Unavailable IM[facility]ING [facility], [facility] WILLIAM JR DWI, WILLIAM [...] SOTINGEANU FLAQUITO ST ANNELIESE Unavailable Unavailable [facility] Unavailable Unavailable DISPATCH COORDINATOR ST, [facility] DISPATCH COORDINATOR ST ST ANNEL[facility] Unavailable Unavailable PHYSICIANS, ST [...] [facility] HYPERTENSIO INC N 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[place] 02-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 [place] CORONARY [facility] 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 E1141 TYPE 2 02-16-2017 [facility] DI[facility]ET[facility] MELLITUS INC W/DIAB MONONEUROPA THY [id number] PAIN IN 02-16-2017 [facility] RIGHT FOOT PHYSICIANS, [facility] M81200 PAIN IN 02-16-2017 [facility] LEFT FOOT PHYSICIANS, [facility] N289 DISORDER OF 02-16-2017 [facility] KIDNEY AND PHYSICIANS, [facility] UNSPECIFIED [id number] OTHER 02-11-2017 SYMED, INC SPECIFIED ARTHRITIS RIGHT SHOULDER I5020 UNSPECIFIED 02-07-2017 [facility] SYSTOLIC PHYSICIANS CONGESTIVE GROUP HEART FAILURE [...] CHRONIC 01-14-2017 ST FATIGUE ANNELIESE UNSPECIFIED PHYSICIANS [id number] PRESENCE 01-04-2017 [facility] AUTO PHYSICIANS IMPLANTABLE GROUP CARDIAC DEFIBRILLAT [...] [facility] HOS[facility] UNSPECIFIED INC R0602 SHORTNESS 09-29-2016 [facility] Z951 PRESENCE OF 09-29-2016 [place] [facility] AORTOCORONA [facility] RY BYPASS GRAFT I472 VENTRICULAR 08-10-2016 [facility] TACHYCARDIA GROUP H538 OTHER 07-10-2016 ZULY VISUAL GRE DISTURBANCE S E118 TYPE 2 05-07-2016 [facility] DI[facility] MELLITUS INC W/UNS COMPLICATIO NS Z9889 OTHER 05-07-2016 [place] SPECIFIED MEDICAL POSTPROCEDU IMAGING ASS [facility] STATES R0600 DYSPNEA 05-06-2016 [facility] UNSPECIFIED [facility] INC [id number] OTH SPEC 05-06-2016 [facility] COMP VASC [facility] PROSTH DEVC INC IMPL GFT INIT ENC R000 TACHYCARDIA 05-05-2016 [facility] PHYSICIANS UNSPECIFIED GROUP Z0000 ENCOUNTER 04-29-2016 ST GEN ADULT ANNELIESE MED EXAM PHYSICIANS W/O ABNORMAL FIND Z125 ENCOUNTER 04-29-2016 ST SCREENING ANNELIESE MALIGNANT PHYSICIANS NEOPLASM PROSTATE Z47516 ENCOUNTER 04-29-2016 ST FOR ANNELIESE SCREENING PHYSICIANS FOR LIPOID DISORDERS Z1329 ENCOUNTER 04-29-2016 ST SCREEN OT ANNELIESE SUSPECTED PHYSICIANS ENDOCRN DISORDER I5023 ACUTE CHRON 04-23-2016 [facility] SYSTOLIC PHYSICIANS, HEART PLLC FAILURE J811 CHRONIC 04-23-2016 [place] PULMONARY [facility] EDEMA IM[facility] ASS R0789 OTHER CHEST 12-02-2015 [place] PAIN [facility]ICAL [facility] ASS R1012 LEFT UPPER 12-02-2015 [place] [facility] R109 UNSPECIFIED 12-02-2015 [facility] ABDOMINAL PHYSICIANS, PAIN PLLC [id number] STRAIN 12-02-2015 [facility] P TENDON ABD INITIAL ENCNTR N528 OTHER MALE 08-19-2015 ST ERECTILE ANNELIESE DYSFUNCTION PHYSICIANS R7989 OTHER SPEC 08-19-2015 ABNORMAL ANNELIESE FINDINGS PHYSICIANS BLOOD CHEMISTRY V64724 OTHER LONG 08-19-2015 ST [address]M ANNELIESE CURRENT PHYSICIANS DRUG THERAPY E1142 TYPE 2 07-22-2015 DIABETES ANNELIESE MELLITUS PHYSICIANS W/DIAB POLYNEUROPA THY E6601 MORBID 07-22-2015 SEVERE ANNELIESE OBESITY DUE PHYSICIANS TO EXCESS CALORIES E871 HYPO-OSMOLA 07-22-2015 ST LITY AND ANNELIESE HYPONATREMI PHYSICIANS A C94654 CUTANEOUS 07-22-2015 ST ABSCESS OF ANNELIESE LEFT LOWER PHYSICIANS LIMB Z09 ENC F/U 07-22-2015 ST EXAM AFTR ANNELIESE CMPL TX OTH PHYSICIANS THAN MALIG NEOPLSM Z4801 ENCOUNTER 07-21-2015 ST CHANGE/KAYLEE ANNELIESE CINDY PHYSICIANS SURGICAL WOUND DRESSING V79333 ENCOUNTER 07-21-2015 ST SURG ANNELIESE AFTERCARE PHYSICIANS FLW SURG SKIN&SUBQ TISS E1149 TYPE 2 07-19-2015 DIABETES ANNELIESE MELLITUS PHYSICIANS W/OTH DIAB NEURO COMP X63792 PAIN IN 07-19-2015 LEFT LEG ANNELIESE PHYSICIANS K5900 CONSTIPATIO 07-17-2015 ST N ANNELIESE UNSPECIFIED PHYSICIANS Y91632 ENCOUNTER 07-17-2015 FOR ANNELIESE PREPROCEDUR PHYSICIANS AL EKG CARIOVASCUL AR EXAM E669 OBESITY 07-16-2015 ST. UNSPECIFIED ANNELIESE ZAHRA U49950 CUTANEOUS 07-16-2015 ST. ABSCESS OF ANNELIESE PERINEUM ZAHRA S33049 CELLULITIS 07-16-2015 ST. 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 ANNELIESE OF ASPIRIN ZAHRA J0100 ACUTE 07-10-2015 MAXILLARY ANNELIESE SINUSITIS PHYSICIANS UNSPECIFIED M5441 LUMBAGO 07-10-2015 WITH ANNELIESE SCIATICA PHYSICIANS RIGHT SIDE R600 LOCALIZED 07-10-2015 EDEMA ANNELIESE PHYSICIANS R630 ANOREXIA 07-10-2015 ANNELIESE PHYSICIANS E1151 TYPE 2 DM 06-20-2015 W/DIAB ANNELIESE PERIPH MED CTR DISPATCH COORDINATOR ANGIOPATHY ST W/O GANGRENE [id number] IDIOPATHIC 06-20-2015 CHRONIC JONES GOUT MED CTR DISPATCH COORDINATOR MULTIPL SITES W/O TOPHUS K529 NONINFECTIV 06-14-2015 E JONES GASTROENTER PHYSICIANS ITIS & COLITIS UNS E11.40 [...] hypertensio n I25.10 ATHSCL HEART DISEASE OF [place] CORONARY ARTERY W/O ANG PCTRS I25.5 Ischemic [...] 22:03 using MDRD formula based on gender, [facility] V <15 complet l 014 End-sta ed [...] l 014 >60.0 ed Report 22:03 mL/min/ [facility] GFR complet l 014 >60.0 ed Report 22:03 (1) mL/min/ [facility] ANIONGA complet l 014 P 12 ed Report 22:03 [facility] CO2 28 complet l 014 mmol/L ed Report 22:03 23-31 [facility] CL 96 L complet l 014 mEq/L ed Report 22:03 98-107 Clinic K 3.6 complet l 014 mEq/L ed Report 22:03 3.5-5.0 [facility] NA 132 complet l 014 L mEq/L ed Report 22:03 136-145 [facility] CREA complet l 014 1.2 ed Report 22:03 mg/dL 0.8-1.3 [facility] BUN 12 complet l 014 mg/dL ed Report 22:03 7-21 [facility] complet l 014 014 ed Report 22:03 22:03 GLUCOSE 250 H mg/dL 80-99 [facility] Collect complet l 014 ion ed Report 22:03 Date Result Units Referen ce [facility] AG complet l 014 Ratio ed Report 22:03 0.8 [facility] B/CR 10 complet l 014 ed Report 22:03 [facility] TBIL complet l 014 0.18 L [...] 1.50 ed Report 22:03 ng/ml [place] e [facility] 0.00 - complet l 014 0.04 ed Report 22:03 ng/ml Negativ e Clinica (1) complet l 014 Troponi ed Report 22:03 n I Referen ce Values [facility] complet l 014 014 ed Report 22:03 22:03 TROP I 0.15 H (1) ng/mL 0.00-0. 10 [facility] Collect complet l 014 ion ed Report 22:03 Date Result Units Referen ce CBC W/DIFF (11-22-2013 22:03) [facility] MCH complet l 014 30.4 pg ed Report 22:03 27.0-33 .0 Clinica PLATELE complet l 014 T 156 X ed Report 22:03 10\E\S\ E\3 150-450 Clinica HCT complet l 014 38.1 L ed Report 22:03 % 40.0-50 .0 [facility] HGB complet l 014 12.7 L ed [...] OF 100 DIABETIC DIABETIC SUPPLIE SUPPLIE ECG 22186 [facility] ROUTINE 7 [facility] ECG INC INC W/LEAST 12 LDS TRCG ONLY W/O I&R THER 24572 [facility] VEL[facility] PROPH/DX 7 [facility] NJX IV INC INC PUSH SINGLE/1S T SBST/DRUG SEDIMENTA 61478 CAROLINE VELAZQUEZ TIORLANDO RATE 7 [facility] RBC INC INC NON-AUTOM ATED COMPREHEN 12350 [facility] VEL[facility] SIVE 7 [facility] METABOLIC INC INC PANEL THERAPEUT 26500 [facility] IC 7 [facility] INJECTION INC [place] [address] [facility] VEL[facility] BLOOD/URI 7 [facility] C ACID INC INC BLOOD 85434 [facility] VEL[facility] COUNT 7 [facility] COMPLETE INC INC AUTO&AUTO DIFRNTL WBC C-REACTIV 15771 [facility] VELAZ[facility] E PROTEIN 7 [facility] INC INC SEWHO L3960 ZEN ZALDIVAR, ABDUCT 7 INC INC PSTN AIRPLANE DESN PREFAB W/FIT&ADJ DIAB ONLY A5500 CLINIC CLINIC FIT CSTM 7 PHARMACY PHARMACY PREP&SPL SHOE MX DNSITY INSRT FOR DIAB A5513 CLINIC CLINIC ONLY MX 7 PHARMACY PHARMACY DNSITY INSRT CSTM MOLD CSTM EA INTERROGA 08530 [facility] ERNESTO TION EVAL 7 PHYSICIAN REMOTE S GROUP </30 D CV MNTR SYS LSO L0650 SYMMARLIN, SYMED, SAGITTAL- 7 INC INC CORONAL CONTRL RIGD ANT POST PANELS THERAPEUT 295[address] ST ROBIN IC 7 ANNELIESE PROPHYLAC TIC/DX PHYSICIAN INJECTION S SUBQ/IM COLLECTIO 62394 ST ROBIN N VENOUS 7 ANNELIESE BLOOD VENIPUNCT PHYSICIAN URE S INJ J0702 ST ST BETAMETHA 7 ANNELIESE ANNELIESE SONE ACETATE & PHYSICIAN PHYSICIAN S S PHOSPHATE [address] 7 ANNELIESE ANNELIESE METHYLPRE DNISOLONE PHYSICIAN PHYSICIAN ACETATE S S [address] [place] [address] TESTOSTER 7 ANNELIESE ANNELIESE [facility] HEALTHCAR E EDGE E EDGE HEMOGLOBI [address] ST ROBIN N 7 ANNELIESE GLYCOSYLA BARBARA A1C PHYSICIAN S INTERROGA 92979 [facility] TION EVAL 7 PHYSICIAN REMOTE S GROUP </90 D 1/2/AUTO PORTER LD DFB INTERROGA 75764 [facility] TION EVAL 7 PHYSICIAN REMOTE S GROUP </30 D CV MNTR SYS [facility] A4258 A A WERED 7 SPECIALTY SPECIALTY [...] HOME BLD SUPPLIE SUPPLIE GLU MON-50 INTERROGA 30703 [facility] TION EVAL 7 PHYSICIAN REMOTE S GROUP </30 D CV MNTR SYS COMPREHEN [address] SIVE 7 ANNELIESE COY METABOLIC PANEL HEALTHCAR HEALTHCAR E EDGE E EDGE DRUG TEST G0480 ST DEFINITV [address] ID METH P HEALTHCAR HEALTHCAR DAY 1-7 E EDGE E EDGE DRUG CL LIPID [address] PANEL 7 ANNELIESE ANNELIESE HEALTHCAR HEALTHCAR E EDGE E EDGE DRUG TEST [address] PRSMV 7 ANNELIESE ANNELIESE INSTRMNT CHEMISTRY HEALTHCAR HEALTHCAR E EDGE E EDGE ANALYZERS HEMOGLOBI [address] N 7 ANNELIESE COY GLYCOSYLA BARBARA A1C HEALTHCAR HEALTHCAR E EDGE E EDGE INTERROGA 68127 [facility] TION EVAL 7 PHYSICIAN REMOTE S GROUP </30 D CV MNTR SYS ECG 31686 CAR[facility]INEORLANDO VELAZQUEZ ROUTINE 7 [facility] ECG INC INC W/LEAST 12 LDS TRCG ONLY W/O I&R BASIC 55919 CAROLINE BROWNON METABOLIC 7 [facility] PANEL INC INC CALCIUM TOTAL COLLECTIO 79144 CAROLINEORLANDO BROWNON N VENOUS 7 [facility] [place] [address] CAROLINE VELAZQUEZ FREE 7 [facility] [place] [address] CAROLINE CAROLINE THYROID 7 [facility] STIMULATI INC INC NG HORMONE TSH RADIOLOGI 66217 [facility] C EXAM 7 MEDICAL CHEST 2 IMAGING VIEWS ASS FRONTAL&L ATERAL HEPATIC 60867 CAR[facility]INE VELAZQUEZ FUNCTION 7 [facility] PANEL INC INC NATRIURET 66205 CAR[facility]INE VELAZQUEZ IC 7 [facility] PEPTIDE INC INC BLOOD 04409 CAROLINE BROWNON COUNT 7 [facility] COMPLETE INC INC AUTO&AUTO DIFRNTL WBC INTERROGA 89407 [facility] TION EVAL 6 PHYSICIAN REMOTE S GROUP </90 D 1/2/AUTO PORTER LD DFB INTERROGA 78121 [facility] TION EVAL 6 PHYSICIAN REMOTE S GROUP </30 D CV MNTR SYS ECG 20311 [facility] ROUTINE 6 PHYSICIAN ECG S GROUP W/LEAST 12 LDS I&R ONLY OPHTH 88339 [facility] 6 GRE GRE XM&EVAL COMPRE NEW PT 1/> VST ECG 01339 CAR[facility]INE VELAZQUEZ ROUTINE 6 [facility] ECG INC INC W/LEAST 12 LDS TRCG ONLY W/O I&R INTERROGA 07179 H ERNESTO TION EVAL 6 PHYSICIAN MAT REMOTE S GROUP </30 D CV MNTR SYS PRGRMG 13156 [facility] EVAL 6 PHYSICIAN MAT IMPLANTAB S GROUP LE IN PRSN DUAL LEAD DFB LEAD C1898 CAR[facility]INE VELAZQUEZ PACEMKR 6 [facility] OTH THAN INC INC TRNS VDD SINGLE PASS RADIOLOGI 00613 CAROLINE VELAZQUEZ C 6 [facility] EXAMINATI INC INC ON CHEST SINGLE VIEW FRONTAL SHOULDER L3670 [facility] 6 TECHNOLOG TECHNOLOG ACROMIO/C [place] [address] CAROLINE VELAZQUEZ INFUSION 6 [facility] THERAPY INC INC PROPHYLAX IS/DX EA HOUR INJECTION J2405 [facility] VELAZQUEZ 6 [facility] ONDANSETR INC INC ON HCL PER 1 MG CARDIOVER C17[address]OL[address]AZQUEZ [address]-DEFIB 6 [facility] RILLATOR INC INC DUAL CHAMBER GLUC BLD 73742 CAROLINE VELAZQUEZ GLUC MNTR 6 [facility] DEV INC INC CLEARED FDA SPEC HOME USE THERAPEUT 39829 [facility] VELAZQUE[facility] IC 6 [facility] INJECTION INC INC IV PUSH EACH NEW DRUG LEAD C1777 CAR[facility] VELAZQUEZ CARDIOVER 6 [facility] T-DEFIB [place] [address] CAR[facility]INE VELAZQUEZ INFUSION 6 [facility] THERAPY/P INC INC ROPHYLAXI S /DX 1ST TO 1 HR INSJ/RPLC 16412 [facility] MT PERM 6 PHYSICIAN MAT DFB S GROUP W/TRNSVNS LDS 1/DUAL CHMBR COLLECTIO 15558 CAR[facility]INE VELAZQUEZ N VENOUS 6 [facility] BLOOD INC INC VENIPUNCT URE BASIC 89360 CAROLINE VELAZQUEZ METABOLIC 6 [facility] PANEL INC INC CALCIUM TOTAL ECG 44732 [facility]ELAZQUEZ ROUTINE 6 [facility] ECG INC INC W/LEAST 12 LDS TRCG ONLY W/O I&R ECG 14019 [facility] ROUTINE 6 PHYSICIAN MAT ECG S GROUP W/LEAST 12 LDS I&R ONLY ECHO 13598 CAROLINE VELAZQUEZ TTHRC R-T 6 [facility] 2D INC INC W/WOM-MOD E COMPL SPEC&COLR D MYOCARDIA 22348 CAR[facility]INE VELAZQUEZ L SPECT 6 [facility] MULTIPLE INC INC STUDIES CV STRS 15239 [facility] ROBI PIMENTEL TST 6 PHYSICIAN XERS&/OR S GROUP RX CONT ECG W/O I&R CV STRS 35988 CAR[facility]INE VELAZQUEZ TST 6 [facility] XERS&/OR INC INC RX CONT ECG TRCG ONLY INJECTION J2785 CAR[facility] VELAZQUEZ 6 [facility] REGADENOS INC INC ON 0.1 MG TECHNETIU A9500 CAR[facility]INE VELAZQUEZ M TC-99M 6 [facility] SESTAMIBI INC INC DX PER STUDY DOSE COLLECTIO 94798 ST WARD N VENOUS 6 ANNELIESE TIFFANY BLOOD VENIPUNCT PHYSICIAN URE S ALBUMIN [address] URINE 6 ANNELIESE ANNELIESE MICROALBU MED CTR MED CTR MIN DISPATCH COORDINATOR ST DISPATCH COORDINATOR ST QUANTIATI VE LIPID [address] PANEL 6 ANNELIESE ANNELIESE MED CTR MED CTR DISPATCH COORDINATOR ST DISPATCH COORDINATOR ST COMPREHEN [address] SIVE 6 ANNELIESE ANNELIESE METABOLIC MED CTR MED CTR PANEL DISPATCH COORDINATOR ST DISPATCH COORDINATOR ST CREATININ [address] E OTHER 6 ANNELIESE ANNELIESE SOURCE MED CTR MED CTR DISPATCH COORDINATOR [place] [address] THYROID 6 ANNELIESE ANNELIESE STIMULATI MED CTR MED CTR NG DISPATCH COORDINATOR ST DISPATCH COORDINATOR ST HORMONE TSH HEMOGLOBI [address] N 6 ANNELIESE ANNELIESE GLYCOSYLA MED CTR MED CTR BARBARA A1C DISPATCH COORDINATOR ST DISPATCH COORDINATOR ST ANNUAL G0439 ST WARD WELLNESS 6 ANNELIESE TIFFANY VST; PERSONALI PHYSICIAN ZED PPS S SUBSQT VST BLOOD [address] COUNT 6 ANNELIESE ANNELIESE COMPLETE MED CTR MED CTR AUTOMATED DISPATCH COORDINATOR ST DISPATCH COORDINATOR ST PROSTATE G0103 ST ST CANCER 6 ANNELIESE ANNELIESE SCREENING MED CTR MED CTR ; PSA DISPATCH COORDINATOR ST DISPATCH COORDINATOR ST TEST NATRIURET 15272 CAR[facility]INE VELAZQUEZ IC 6 [facility] PEPTIDE INC INC ECG 33472 [facility] ROUTINE 6 PHYSICIAN MAT ECG S GROUP W/LEAST 12 LDS I&R ONLY ECG 50287 CAR[facility]INE VELAZQUEZ ROUTINE 6 [facility] ECG INC INC W/LEAST 12 LDS TRCG ONLY W/O I&R COLLECTIO 58574 CAROLINE VELAZQUEZ N VENOUS 6 [facility] BLOOD INC INC VENIPUNCT URE BASIC 26896 CAROLINE VELAZQUEZ METABOLIC 6 [facility] PANEL INC INC CALCIUM TOTAL COMPREHEN 53107 CAROLINE [facility]ELAZQUEZ SIVE 6 [facility] METABOLIC INC INC PANEL FIBRIN 38216 CAROLINE VELAZQUEZ DGRADJ 6 [facility] PRODUCTS INC INC D-DIMER QUAL/SEMI TORY ECG 24568 CAROLINE VELAZQUEZ ROUTINE 6 [facility] ECG INC INC W/LEAST 12 LDS TRCG ONLY W/O I&R RADIOLOGI 77106 [place] [facility] ALL C 6 MEDICAL EXAMINATI IMAGING ON CHEST ASS SINGLE VIEW FRONTAL CREATINE 98494 CAROLINE VELAZQUEZ KINASE 6 [facility] [place] [address] CAROLINE VELAZQUEZ LIPASE 6 [facility] INC INC THER 72607 CAROLINE VELAZQUEZ PROPH/DX 6 [facility] NJX IV INC INC PUSH SINGLE/1S T SBST/DRUG ECG 85243 CAROLINE THOMAS JR ROUTINE 6 [facility] W/LEAST P 12 LDS I&[place] [address] CAROLINE VELAZQUEZ THYROID 6 [facility] STIMULATI INC INC NG HORMONE TSH RADIOLOGI 65151 CAROLINE VELAZQUEZ C EXAM 6 [facility] CHEST 2 INC INC VIEWS FRONTAL&[place] [address] CAROLINE VELAZQUEZ LACTATE 6 [place] [address] CAROLINE VELAZQUEZ AMYLASE 6 [facility] INC INC CREATINE 27784 CAROLINE VELAZQUEZ KINASE MB 6 [facility] [place] [address] CAROLINE VELAZQUEZ THYROXINE 6 [facility] TOTAL INC INC NATRIURET 03949 CAR[facility]INE VELAZQUEZ IC 6 [facility] PEPTIDE INC INC THYROID 96191 CAROLINE VELAZQUEZ HORM 6 [facility] UPTK/THYR INC [place] [address] CAROLINE VELAZQUEZ TROPONIN 6 [facility] QUANTITAT INC INC LAUREL BLOOD 78148 CAROLINE VELAZQUEZ COUNT 6 [facility] COMPLETE INC INC AUTO&AUTO DIFRNTL WBC CULTURE 42806 CAR[facility]INE VELAZQUEZ BACTERIAL 6 [facility] BLOOD INC INC AEROBIC W/[place] [address] CAROLINE VELAZQUEZ TROPONIN 6 [facility] QUANTITAT INC INC LAUREL BLOOD 73009 CAR[facility]INE VELAZQUEZ COUNT 6 [facility] COMPLETE INC INC AUTO&AUTO DIFRNTL WBC NATRIURET 75048 CAR[facility]INE VELAZQUEZ IC 6 [facility] PEPTIDE INC INC CREATINE 87512 CAROLINE CAROLINE KINASE MB 6 [facility] [place] [address] CAROLINE VELAZQUEZ AMYLASE 6 [facility] INC INC RADIOLOGI 60300 CAROLINE VELAZQUEZ C EXAM 6 [facility] CHEST 2 INC INC VIEWS FRONTAL&L ATERAL LOCM Q9967 CAROLINEORLANDO VELAZQUEZ [phone] 6 [facility] MG/ML INC INC IODINE CONCENTRA TION PER ML ECG 15926 CAROLINE THOMAS JR ROUTINE 6 [facility] W/LEAST P 12 LDS I&R ONLY URNLS DIP 79891 CAROLINEORLANDO VELAZQUEZ 6 [facility] STICK/TAB INC [place] [address] CAROLINE VELAZQUEZ ABDOMEN & 6 [facility] PELVIS INC INC W/[place] [address] CAROLINE VELAZQUEZ LIPASE 6 [facility] INC INC CREATINE 69572 CAROLINE VELAZQUEZ KINASE 6 [facility] TOTAL INC INC ECG 84740 CAROLINE VELAZQUEZ ROUTINE 6 [facility] ECG INC INC W/LEAST 12 LDS TRCG ONLY W/O I&R FIBRIN 45532 CAROLINE VELAZQUEZ DGRADJ 6 [facility] PRODUCTS INC INC D-DIMER QUAL/SEMI TORY COMPREHEN 51641 CAROLINE VELAZQUEZ SIVE 6 [facility] MEM [...] DNISOLONE PHYSICIAN ACETATE S [address] [place] IC 5 ANNELIESE ERIBERTO PROPHYLAC TIC/DX PHYSICIAN INJECTION S SUBQ/IM COLLECTIO 93906 [facility] N VENOUS 5 ANNELIESE MIC BLOOD VENIPUNCT PHYSICIAN URE S BASIC [address] METABOLIC 5 ANNELIESE COY PANEL MED CTR MED CTR CALCIUM DISPATCH COORDINATOR ST DISPATCH COORDINATOR ST TOTAL PHYS CERT G0180 [facility] MCR-COVR 5 ANNELIESE MIC JAROD HLTH SRVC PER PHYSICIAN CERT PRD S SBSQ 44097 [facility] 5 ANNELIESE GLORIA CARE/DAY 25 PHYSICIAN MINUTES S SBSQ 88885 [facility] 5 ANNELIESE CARE/DAY 25 PHYSICIAN MINUTES S ANES 61192 [facility]ISP[facility] NERVE 5 NT FORD [facility] ANESTHESI TENDON OLOGIST FASCIA & BURSAE UPPER LEG ECG 54291 [facility] ROUTINE 5 ANNELIESE FLAQUITO ECG W/LEAST PHYSICIAN 12 LDS S EKG I&R ONLY INCISION 73711 [facility] & 5 ANNELIESE MIC DRAINAGE ABSCESS PHYSICIAN COMPLICAT S ED/MULTIP LE INITIAL 86076 [facility] 5 ANNELIESE STEPHANIE CARE/DAY 50 PHYSICIAN MINUTES S GROUND A0425 RURAL/MET RURAL/MET MILEAGE 5 RO RO PER AMBULANCE AMBULANCE STATUTE MILE INJECTION J2270 [facility] 5 ANNELIESE ANNELIESE SULFATE ZAHRA ZAHRA UP TO 10 MG THERAPEUT 58247 [facility] IC 5 [facility] INJECTION ZAH[place] [address] [facility] INFUSION 5 [facility] THERAPY/P ZAHRA ZAHRA ROPHYLAXI S /DX 1ST TO 1 HR URNLS DIP 48628 [facility] 5 [facility] STICK/TAB ZAHRA ZAHRA LET RGNT AUTO W/O MICROSCOP Y LOCM Q9967 [facility] [phone] 5 [facility] MG/ML ZAHRA ZAHRA IODINE [place] [address] [facility] LACTATE 5 [facility] ZAHRA ZAHRA INJECTION J2405 [facility] 5 [facility] ONDANSETR ZAHRA ZAHRA ON HCL PER 1 MG INJECTION J3370 [facility] 5 [facility] VANCOMYCI ZAHRA ZAHRA N HCL 500 MG BASIC 74874 [facility] METABOLIC 5 [facility] PANEL ZAHRA ZAHRA CALCIUM TOTAL COLLECTIO 02867 [facility] N VENOUS 5 [facility] BLOOD ZAHRA ZAHRA VENIPUNCT URE RADEX 98971 [facility] SPINE 5 [facility] LUMBOSACR ZAHRA ZAHRA AL MINIMUM [address] PELVIS 33023 [facility] 5 [facility] W/[place] [address] [facility] INFUSION 5 [facility] HYDRATION ZAHRA ZAHRA EACH ADDITIONA L HOUR AMB A0426 RURAL/MET RURAL/MET SERVICE 5 RO RO ALS AMBULANCE AMBULANCE NONEMERGE NCY TRANSPORT LEVEL 1 5% J7060 [facility] DEXTROSE/ 5 [facility] WATER ZAHRA ZAHRA THER 88489 [facility] PROPH/DX 5 [facility] NJX EA ZAHRA ZAHRA SEQL IV PUSH SBST/DRUG FAC BLOOD [address] COUNT 5 ANNELIESE GUTIERREZTH COMPLETE ZAHRA ZAHRA AUTO&AUTO DIFRNTL WBC CULTURE [address] BACTERIAL 5 ANNELIESE GUTIERREZTH BLOOD ZAHRA ZAHRA AEROBIC W/ID ISOLATES THERAPEUT 07[address] ST [facility] IC 5 ANNELIESE ERIBERTO PROPHYLAC TIC/DX PHYSICIAN INJECTION S SUBQ/IM INJECTION J1885 ST ST 5 ANNELIESE COY KETOROLAC PHYSICIAN PHYSICIAN TROMETHAM S S INE PER [address] D[address] [facility] 5 ANNELIESE ERIBERTO STICK/TAB LET RGNT PHYSICIAN NON-AUTO S W/O MICRSCP URNLS DIP 62603 [facility] 5 ANNELIESE THOMAS ALISTAIR STICK/TAB LET RGNT PHYSICIAN NON-AUTO S W/O MICRSCP HOME E0607 [facility] BLOOD 5 PHARMACY PHARMACY GLUCOSE #584 #5[address] E OTHER 5 ANNELIESE [facility] DISPATCH COORDINATOR ST DISPATCH COORDINATOR ST BLD GLU A4253 [facility] TEST/REAG 5 PHARMACY PHARMACY T STRIPS #584 #584 HOME BLD GLU MON-[address] B[address] [facility] GLUC MNTR 5 ANNELIESE THOMAS ALISTAIR DEV CLEARED PHYSICIAN FDA SPEC S HOME USE LANCETS [id number] [facility] PHARMACY OF 100 #[id number] 5 ANNELIESE COY KETOROLAC PHYSICIAN PHYSICIAN TROMETHAM S S INE PER [address] MANZO IC 5 ANNELIESE THOMAS ALISTAIR PROPHYLAC TIC/DX PHYSICIAN INJECTION S SUBQ/IM ALBUMIN [address] URINE 5 ANNELIESE COY MICROALBU MED [facility] MED CTR MIN DISPATCH COORDINATOR ST DISPATCH COORDINATOR ST QUANTIATI VE LIPID [address] PANEL 5 ANNELIESE LAURENBETH [facility] MED CTR DISPATCH COORDINATOR [place] [address] BLOOD/URI 5 ANNELIESE COY C ACID MED CTR MED CTR DISPATCH COORDINATOR ST DISPATCH COORDINATOR ST COMPREHEN [address] SIVE 5 ANNELIESE COY METABOLIC MED CTR MED CTR PANEL DISPATCH COORDINATOR ST DISPATCH COORDINATOR ST HEMOGLOBI [address] N 5 ANNELIESE COY GLYCOSYLA MED CTR MED CTR BARBARA A1C DISPATCH COORDINATOR ST DISPATCH COORDINATOR ST Encounters Encounter Start End Date Code Location Performer Type Date [facility] - 7 7 [facility] OUTPAT[facility]EN [facility] T EMERGENCY 48112 NEERAJ JEROME 7 7 PHYSICIAN DEPARTMEN S, PLLC T VISIT HIGH/URGE NT SEVERITY OFFICE [address] [facility] 7 7 ANNELIESE T VISIT 25 PHYSICIAN MINUTES S OFFICE 77483 [facility] ANNELIESE T VISIT 25 PHYSICIAN MINUTES S [facility]OSP[facility] OTHER 7 7 [facility] OFFICE [address] [facility] 7 7 ANNELIESE T VISIT 15 PHYSICIAN MINUTES S OFFICE [address] [facility] 7 7 ANNELIESE T VISIT 25 PHYSICIAN [address] S [facility] OTHER 7 7 [facility] EMERGENCY 65125 NEERAJ SIMMS 7 7 PHYSICIAN JR DEPARTMEN S, PLLC T VISIT MODERATE SEVERITY EMERGENCY 93525 [facility] 7 7 [facility] DEPART[facility] INC T VISIT LOW/MODER SEVERITY [facility] - 7 7 [facility] - 7 7 [facility] - 6 6 [facility] - 6 6 [facility] OUTPATIEN [facility] T HOSPITAL [facility] - OTHER 6 6 [facility] INC OFFICE 44112 [facility] OUTPATIEN 6 6 PHYSICIAN MAT T VISIT S GROUP 25 MINUTES [facility]OSP[facility] - 6 6 [facility] OUTPATIEN [facility] - 6 6 [facility] OUTPATIEN [facility] ST - OTHER 6 6 ANNELIESE MED CTR DISPATCH COORDINATOR ST OFFICE 08925 [facility] OUTPATIEN 6 6 PHYSICIAN MAT T NEW 60 S GROUP MINUTES HOSP[facility] - 6 6 [facility] - 6 6 [facility] T EMERGENCY 05465 [facility] 6 6 [facility] T VISIT HIGH/URGE NT SEVERITY EMERGENCY 35564 NEERAJ SOTINGEAN DEPT 6 6 PHYSICIAN U FLAQUITO VISIT S, [facility] HIGH SEVERITY& THREAT [facility] EMERGENCY 27742 NEERAJ SOTINGEAN DEPT 6 6 PHYSICIAN U FLAQUITO VISIT S, [facility] HIGH [facility]VERITY& THREAT [facility] HOSPITAL [facility] - 6 6 [facility] T EMERGENCY 97784 [facility] 6 6 [facility] T VISIT MODERATE SEVERITY OFFICE 475[address] ST [facility] OUTPATIEN 5 5 ANNELIESE ERIBERTO T VISIT 25 PHYSICIAN MINUTES S OFFICE 91907 [facility] OUTPATIEN 5 5 ANNELIESE STEPHANIE T VISIT 25 PHYSICIAN MINUTES S [facility]PITAL ST - OTHER 5 5 ANN[facility] MED CTR DISPATCH COORDINATOR ST OFFICE 73821 [facility] OUTPATIEN 5 5 ANNELIESE STEPHANIE T VISIT [address] [facility] 5 5 [facility] [address] [facility] DEPT 5 5 JONES VISIT [facility] HIGH SEVERITY& THREAT FUNCJ OFFICE [address]168 ST SHEEHAN OUTPATIEN 5 5 ANNELIESE EWI T VISIT [address] [facility] [address] - OTHER 5 5 [facility] CTR DISPATCH COORDINATOR OFFICE 09828 ST MANZO OUTPATIEN 5 5 ANNELIESE SAINZ T VISIT [address] [facility] [address] - OTHER 5 5 [facility] CTR DISPATCH COORDINATOR OFFICE 54909 ST AD[facility] OUTPATIEN 5 5 ANNELIESE GARRISON T VISIT 25 [facility]
--- OUTSIDE RECORDS SUMMARY | 2017-03-28 22:53 | External Medical Summary Rpt ---
Author Author , LISA Organization LISA Address Unknown Phone [email or web address] Care Team Providers Care Spanish Lecturer Name Role Phone [facility] Unavailable [...] Unavailable CRISPEN FORD, CRISPEN Unavailable Unavailable FORD SHARA SHANA, Unavailable Unavailable SHARA SHANA FRAZIER STEPHANIE, Unavailable Unavailable FRAZIER STEPHANIE JR DEMI, DEMI, Unavailable Unavailable JR QUEENIE, QUEENIE Unavailable Unavailable [facility] Unavailable Unavailable INC, [facility] Unavailable Unavailable HOSPITAL P, [facility], Unavailable [facility]available [facility] Unavailable Unavailable [facility], [facility] WILLIAM JR DWI, WILLIAM Unavailable Unavailable JR DWI ZULY GRE, Unavailable Unavailable ZULY GRE ZULY GRE, Unavailable Unavailable ZULY GRE JOVANY WILLIAM ALISTAIR, Unavailable Unavailable MANZO WILLIAM ALISTAIR [facility], Unavailable Unavailable [facility], [facility], [facility] Un[facility] SCHACK BLADIMIR, SCHACK Unavailable Unavailable BLADIMIR ROBIN, ROBIN Unavailable Unavailable ROBIN STEPHANIE, ROBIN Unavailable Unavailable STEPHANIE SHANEHSAZ GLORIA, Unavailable Unavailable SHANEHSAZ GLORIA ERNESTO, ERNESTO Unavailable Unavailable ERNESTO MAT, Unavailable Unavailable ERNESTO MAT SOTINGEANU FLAQUITO, Unavailable Unavailable SOTINGEANU FLAQUITO ST [facility] Unavailable Unavailable [facility] Unavailable [facility]available STATISTICS MANAGER ST, [facility] STATISTICS MANAGER ST ST [facility] Unavailable Unavailable PHYSICIANS, [facility] Unavailable Unavailable PHYSICIANS EKG, [facility] ANNELIES[facility] ZAHRA, Unavailable Unavailable ST. [facility], [facility], Unavailable Unavailable INC [facility], [facility], Unavailable Unavailable INC [facility] Unavailable Unavailable #584, [facility] Unavailable Unavailable #591, [facility] NDAIA HUDDLESTON, NADIA Unavailable Unavailable FLAQUITO Purpose Continuity of Care Document - 06-14-2015 through 2016 Problems Code Diagnosis DOS Provider Status E1140 TYPE 2 DM 03-02-2017 A SPECIALTY WITH DIABETIC DIABETIC SUPPLIE NEUROPATHY UNSPECIFIED E1165 TYPE 2 03-02-2017 [facility] DI[facility] DIABETIC MELLITUS SUPPLIE WITH HYPERGLYCEM IA E119 TYPE 2 02-19-2017 [facility] MELLITUS INC WITHOUT COMPLICATIO NS G629 POLYNEUROPA 02-19-2017 [facility] TH[facility] UNSPECIFIED INC I10 ESSENTIAL 02-19-2017 [facility] HYPERTENSIO INC N I2510 ASHD YAKUTAT 02-19-2017 [facility] 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 E1141 TYPE 2 02-16-2017 [facility] MELLITUS INC W/DIAB MONONEUROPA THY T05641 PAIN IN 02-16-2017 [facility], [facility] N11342 PAIN IN 02-16-2017 [facility] LEFT FOOT [facility], [facility] N289 DISORDER OF 02-16-2017 [facility], [facility] UNSPECIFIED K91564 OTHER 02-11-2017 [facility] INC SPECIFIED ARTHRITIS RIGHT SHOULDER I5020 UNSPECIFIED 02-07-2017 [facility]ST[facility]IC PHYSICIANS CONGESTIVE GROUP HEART FAILURE M539 DORSOPATHY 01-25-2017 [facility] INC UNSPECIFIED M545 LOW BACK 01-25-2017 [facility], INC PAIN 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 ANNELIESE N PHYSICIANS I255 ISCHEMIC 01-22-2017 ST CARDIOMYOPA ANNELIESE THY PHYSICIANS I5022 CHRONIC 01-22-2017 SYSTOLIC ANN[facility] CONGESTIVE PHYSICIANS HEART FAILURE Z6843 BODY MASS 01-22-2017 ST INDEX BMI ANNELIESE 50-59.9 PHYSICIANS ADULT G8929 OTHER 01-14-2017 CHRONIC ANN[facility]IES[facility] PAIN PHYSICIANS M7541 IMPINGEMENT 01-14-2017 SYNDROME ANNELIESE OF RIGHT PHYSICIANS SHOULDER N529 MALE 01-14-2017 ERECTILE ANN[facility]IES[facility] DYSFUNCTION PHYSICIANS UNSPECIFIED R5382 CHRONIC 01-14-2017 ST FATIGUE ANNELIESE UNSPECIFIED PHYSICIANS C96877 PRESENCE 01-04-2017 [facility] AUTO PHYSICIANS IMPLANTABLE [place]RILL[place] H9319 TINNITUS 12-14-2016 UNSPECIFIED ANNELIESE EAR PHYSICIANS E785 HYPERLIPIDE 11-16-2016 ST ANYA ANNELIESE UNSPECIFIED PHYSICIANS J449 CHRONIC 11-16-2016 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[facility]IESE PULMONARY PHYSICIANS DISEASE UNS M1000 IDIOPATHIC 11-16-2016 GOUT ANNELIESE UNSPECIFIED PHYSICIANS SITE Z8679 PERSONAL 11-16-2016 HISTORY OTH ANNELIESE DISEASES PHYSICIANS CIRCULATORY SYSTEM M2550 PAIN IN 10-29-2016 UNSPECIFIED ANNELIESE [facility] L309 DERMATITIS 10-18-2016 [facility] UNSPECIFIED PHYSICIANS, PLLC Z720 TOBACCO USE 10-18-2016 [facility] INC E8352 HYPERCALCEM 09-29-2016 [facility] INC I509 HEART 09-29-2016 [facility] FAILURE [facility] UNSPECIFIED INC R0602 SHORTNESS 09-29-2016 [facility] Z951 PRESENCE OF 09-29-2016 [facility] RY BYPASS GRAFT I472 VENTRICULAR 08-10-2016 [facility] TACHYCARDIA GROUP H538 OTHER 07-10-2016 ZULY VISUAL GRE DISTURBANCE S E118 TYPE 2 05-07-2016 [facility] MELLITUS INC W/UNS COMPLICATIO NS Z9889 OTHER 05-07-2016 [facility] SPECIFIED [facility] POSTPROCEDU [facility] RAL STATES R0600 DYSPNEA 05-06-2016 [facility] UNSPECIFIED [facility] INC Q33883G OTH SPEC 05-06-2016 [facility] COMP VASC [facility] PROSTH DEVC INC IMPL GFT INIT ENC R000 TACHYCARDIA 05-05-2016 [facility] UNSPECIFIED GROUP Z0000 ENCOUNTER 04-29-2016 ST GEN ADULT ANNELIESE MED EXAM PHYSICIANS W/O ABNORMAL FIND Z125 ENCOUNTER 04-29-2016 ST SCREENING ANNELIESE MALIGNANT PHYSICIANS NEOPLASM PROSTATE W76449 ENCOUNTER 04-29-2016 ST FOR ANNELIESE SCREENING PHYSICIANS FOR LIPOID DISORDERS Z1329 ENCOUNTER 04-29-2016 ST SCREEN OT ANNELIESE SUSPECTED PHYSICIANS ENDOCRN DISORDER I5023 ACUTE CHRON 04-23-2016 [facility] SYSTOLIC PH[facility]ICIANS, HEART PLLC FAILURE J811 CHRONIC 04-23-2016 [facility]MA [facility] R0789 OTHER CHEST 12-02-2015 [facility] R1012 LEFT UPPER 12-02-2015 [facility] R109 UNSPECIFIED 12-02-2015 [facility] ABDOMINAL [facility], PAIN PLLC K09387S STRAIN 12-02-2015 [facility] P TENDON ABD INITIAL ENCNTR N528 OTHER MALE 08-19-2015 ERECTILE ANNELIESE DYSFUNCTION PHYSICIANS R7989 OTHER SPEC 08-19-2015 ABNORMAL ANNELIESE FINDINGS PHYSICIANS BLOOD CHEMISTRY U32259 OTHER LONG 08-19-2015 TERM ANNELIESE CURRENT PHYSICIANS DRUG THERAPY E1142 TYPE 2 07-22-2015 DIABETES ANNELIESE MELLITUS PHYSICIANS W/DIAB POLYNEUROPA THY E6601 MORBID 07-22-2015 SEVERE ANNELIESE OBESITY DUE PHYSICIANS TO EXCESS CALORIES E871 HYPO-OSMOLA 07-22-2015 ST LITY AND ANNELIESE HYPONATREMI PHYSICIANS A T28428 CUTANEOUS 07-22-2015 ST ABSCESS OF ANNELIESE LEFT LOWER PHYSICIANS LIMB Z09 ENC F/U 07-22-2015 ST EXAM AFTR ANNELIESE CMPL TX OTH PHYSICIANS THAN THOMSPON NEOPLSM Z4801 ENCOUNTER 07-21-2015 ST CHANGE/KAYLEE ANNELIESE CINDY PHYSICIANS SURGICAL WOUND DRESSING F09516 ENCOUNTER 07-21-2015 ST SURG ANNELIESE AFTERCARE PHYSICIANS FLW SURG SKIN&SUBQ TISS E1149 TYPE 2 07-19-2015 DIABETES ANNELIESE MELLITUS PHYSICIANS W/OTH DIAB NEURO COMP T27159 PAIN IN 07-19-2015 LEFT LEG ANNELIESE PHYSICIANS K5900 CONSTIPATIO 07-17-2015 ST N ANNELIESE UNSPECIFIED PHYSICIANS P10472 ENCOUNTER 07-17-2015 ST FOR ANNELIESE PREPROCEDUR PHYSICIANS AL EKG CARIOVASCUL AR EXAM E669 OBESITY 07-16-2015 ST. UNSPECIFIED ANNELIESE ZAHRA X41521 CUTANEOUS 07-16-2015 ST. ABSCESS OF ANNELIESE PERINEUM ZAHRA X66147 CELLULITIS 07-16-2015 ST. OF LEFT ANNELIESE LOWER LIMB ZAHRA T20645 CELLULITIS 07-16-2015 [facility] UNSPECIFIED PART OF LIMB Z7982 HALF-WAY 07-16-2015 . CURRENT USE ANNELIESE OF ASPIRIN ZAHRA J0100 ACUTE 07-10-2015 MAXILLARY ANNELIESE SINUSITIS PHYSICIANS UNSPECIFIED M5441 LUMBAGO 07-10-2015 WITH ANNELIESE SCIATICA PHYSICIANS RIGHT SIDE R600 LOCALIZED 07-10-2015 EDEMA ANNELIESE PHYSICIANS R630 ANOREXIA 07-10-2015 ANNELIESE PHYSICIANS E1151 TYPE 2 DM 06-20-2015 W/DIAB [facility] STATISTICS MANAGER ANGIOPATHY ST W/O GANGRENE [id number] IDIOPATHIC 06-20-2015 CHRONIC FELT GOUT [facility] CTR STATISTICS MANAGER MULTIPL ST SITES W/O TOPHUS K529 NONINFECTIV 06-14-2015 E ANNELIESE GASTROENTER PHYSICIANS ITIS & COLITIS UNS Procedures Procedure DOS Code Location Performer Comment BLD GLU A4253 A A TEST/REAG 7 SPECIALTY SPECIALTY T STRIPS DIABETIC DIABETIC HOME BLD SUPPLIE SUPPLIE GLU MON-50 NORMAL A4256 A A LOW AND 7 SPECIALTY SPECIALTY HIGH DIABETIC DIABETIC CALIBRATO SUPPLIE SUPPLIE R SOLUTION/ CHIPS LANCETS A4259 A A PER BOX 7 SPECIALTY SPECIALTY OF 100 DIABETIC DIABETIC SUPPLIE SUPPLIE ECG 15125 [facility] ROUTINE [facility] ECG INC INC W/LEAST 12 LDS TRCG ONLY W/O I&[place] [address] [facility] BLOOD/URI 7 [facility] C ACID INC INC SEDIMENTA 17452 [facility] TION RATE 7 [facility] RBC INC INC NON-AUTOM ATED THER 43377 [facility] PROPH/DX 7 [facility] NJX IV INC INC PUSH SINGLE/1S T SBST/DRUG C-REACTIV 89983 [facility] E PROTEIN 7 [facility] INC INC COMPREHEN 95094 [facility] SIVE 7 [facility] METABOLIC INC INC PANEL BLOOD 33878 [facility] COUNT 7 [facility] COMPLETE INC INC AUTO&AUTO DIFRNTL WBC THERAPEUT 14481 [facility] IC 7 [facility] INJECTION INC INC IV PUSH EACH NEW DRUG SEWHO L3960 SYMED, SYMED, ABDUCT 7 INC INC PSTN AIRPLANE DESN PREFAB W/FIT&ADJ FOR DIAB A5513 CLINIC CLINIC ONLY MX 7 PHARMACY PHARMACY DNSITY INSRT CSTM MOLD CSTM EA DIAB ONLY A5500 CLINIC CLINIC FIT CSTM 7 PHARMACY PHARMACY PREP&SPL SHOE MX DNSITY INSRT INTERROGA 61539 [facility] TION EVAL 7 PHYSICIAN REMOTE S GROUP </30 D CV MNTR SYS LSO L0650 SYMED, SYMED, SAGITTAL- 7 INC INC CORONAL CONTRL RIGD ANT POST PANELS COLLECTIO 42746 ST ROBIN N VENOUS 7 ANNELIESE BLOOD VENIPUNCT PHYSICIAN URE S INJ J0702 [address] ST BETAMETHA 7 ANNELIESE ANNELIESE SONE ACETATE & PHYSICIAN PHYSICIAN S S PHOSPHATE [address] ROBIN IC 7 ANNELIESE PROPHYLAC TIC/DX PHYSICIAN INJECTION S SUBQ/IM INJECTION J1040 ST ST 7 ANNELIESE ANNELIESE METHYLPRE DNISOLONE PHYSICIAN PHYSICIAN ACETATE S [place] [address] [place] [address] TESTOSTER 7 ANNELIESE [facility] HEMOGLOBI [address] ST ROBIN N 7 ANNELIESE GLYCOSYLA BARBARA A1C PHYSICIAN S INTERROGA 05643 [facility] TION EVAL 7 PHYSICIAN REMOTE S GROUP </90 D 1/2/SOFTWARE ENGINEER WEB APPLICATIONS LD DFB INTERROGA 20636 [facility] TION EVAL 7 PHYSICIAN REMOTE S GROUP </30 D CV MNTR SYS [facility] A4258 A A WERED 7 SPECIALTY SPECIALTY DEVICE DIABETIC DIABETIC FOR SUPPLIE SUPPLIE LANCET EACH NORMAL A4256 A A LOW AND 7 SPECIALTY SPECIALTY HIGH DIABETIC DIABETIC CALIBRATO SUPPLIE SUPPLIE R SOLUTION/ CHIPS LANCETS A4259 A A PER BOX 7 SPECIALTY SPECIALTY OF 100 DIABETIC DIABETIC SUPPLIE SUPPLIE BLD GLU A4253 A A TEST/REAG 7 SPECIALTY SPECIALTY T STRIPS DIABETIC DIABETIC HOME BLD SUPPLIE SUPPLIE GLU MON-50 INTERROGA 26555 [facility] SHAHID EVAL 7 PHYSICIAN REMOTE S GROUP </30 D CV MNTR SYS LIPID 11091 [facility] PANEL 7 [facility] HEALTHCAR HEALTHCAR E EDGE E EDGE HEMOGLOBI 59568 [facility] N 7 [facility] GLYCOSYLA BARBARA A1C HEALTHCAR HEALTHCAR E EDGE E EDGE DRUG TEST 39220 [facility] PRSMV 7 [facility] INSTRMNT CHEMISTRY HEALTHCAR HEALTHCAR E EDGE E EDGE ANALYZERS COMPREHEN 77978 [facility] SIVE 7 [facility] METABOLIC PANEL HEALTHCAR HEALTHCAR E EDGE E EDGE DRUG TEST G0480 [facility] DEFINITV [address] [facility] DR ID METH P HEALTHCAR HEALTHCAR DAY 1- E EDGE E EDGE DRUG CL INTERROGA 54708 [facility] ESCUDERO 7 PHYSICIAN REMOTE S GROUP </30 D CV MNTR SYS BASIC 16248 [facility] METABOLIC 7 [facility] PANEL INC INC CALCIUM TOTAL BLOOD 44215 [facility] COUNT 7 [facility] COMPLETE INC INC AUTO&AUTO DIFRNTL WBC NATRIURET 83162 [facility] IC 7 [facility] PEPTIDE INC INC HEPATIC 02704 [facility] FUNCTION 7 [facility] [place] [address] [facility] FREE 7 [facility] THYROXINE INC INC ECG 17911 [facility] ROUTINE 7 [facility] ECG INC INC W/LEAST 12 LDS TRCG ONLY W/O I&[place] [address] [facility] THYROID 7 [facility] STIMULATI INC INC NG HORMONE TSH COLLECTIO 12956 [facility] N VENOUS 7 [facility] BLOOD INC INC VENIPUNCT URE RADIOLOGI 79659 [facility] C EXAM 7 MEDICAL CHEST 2 IMAGING VIEWS ASS FRONTAL&L ATERAL INTERROGA 76558 [facility] TION EVAL 6 PHYSICIAN REMOTE S GROUP </90 D 1/2/SOFTWARE ENGINEER WEB APPLICATIONS LD DFB INTERROGA 90770 [facility] TION EVAL 6 PHYSICIAN REMOTE S GROUP </30 D CV MNTR SYS ECG 91870 [facility] ROUTINE 6 PHYSICIAN ECG S GROUP W/LEAST 12 LDS I&R ONLY OPHTH 15295 [facility] 6 GRE GRE XM&EVAL COMPRE NEW PT 1/> VST ECG 56482 [facility] ROUTINE 6 [facility] ECG INC INC W/LEAST 12 LDS TRCG ONLY W/O I&R INTERROGA 78276 [facility] TION EVAL 6 PHYSICIAN MAT REMOTE S GROUP </30 D CV MNTR SYS PRGRMG 03608 [facility] EVAL 6 PHYSICIAN MAT IMPLANTAB S GROUP LE IN PRSN DUAL LEAD DFB RADIOLOGI 82023 [facility] C 6 MEDICAL EXAMINATI IMAGING [place] [address] [facility] INFUSION 6 [facility] THERAPY INC INC PROPHYLAX IS/DX EA HOUR INJECTION J2405 [facility] 6 [facility] ONDANSETR INC INC ON HCL PER 1 MG LEAD C1898 [facility] PACEMKR 6 [facility] OTH THAN INC INC TRNS VDD SINGLE PASS GLUC BLD 41351 [facility] GLUC MNTR 6 [facility] DEV INC INC CLEARED FDA SPEC HOME USE INSJ/RPLC 78279 [facility] MT PERM 6 PHYSICIAN MAT DFB S GROUP W/TRNSVNS LDS 1/[place] [address] [facility] INFUSION 6 [facility] THERAPY/P INC INC ROPHYLAXI S /DX 1ST TO 1 HR THERAPEUT 66532 [facility] V[facility] IC 6 [facility] INJECTION INC INC IV PUSH EACH NEW DRUG CARDIOVER C1721 [facility] TER-DEFIB 6 [facility] RILLATOR INC INC DUAL CHAMBER SHOULDER L3670 [facility] 6 TECHNOLOG TECHNOLOG ACROMIO/C IES INC IES INC LAVICULAR PREFAB LEAD C1777 [facility] CARDIOVER 6 [facility] T-DEFIB INC INC ENDOCARDI AL SINGLE COIL BASIC 36371 [facility] METABOLIC 6 [facility] PANEL INC INC CALCIUM TOTAL COLLECTIO 12975 [facility] V[facility] N VENOUS 6 [facility] BLOOD INC INC VENIPUNCT URE ECG 28992 [facility] ROUTINE 6 [facility] ECG INC INC W/LEAST 12 LDS TRCG ONLY W/O I&R ECG 58115 [facility] ROUTINE 6 PHYSICIAN MAT ECG S GROUP W/LEAST 12 LDS I&R ONLY ECHO 87552 [facility] TTHRC R-T 6 [facility] 2D INC INC W/WOM-MOD E COMPL SPEC&COLR D MYOCARDIA 85577 [facility] L SPECT 6 [facility]OS[facility] MULTIPLE INC INC STUDIES CV STRS 39289 [facility] MARGARITO TST 6 PHYSICIAN XERS&/OR S GROUP RX CONT ECG W/O I&R CV STRS 03529 CAR[facility]INE [facility]INE TST 6 [facility] XERS&/OR INC INC RX CONT ECG TRCG ONLY TECHNETIU A9500 [facility] M TC-99M 6 [facility] HOSP SESTAMIBI INC INC DX PER STUDY DOSE INJECTION J2785 [facility] 6 [facility] H[facility]P REGADENOS INC INC ON 0.[address] WARD WELLNESS 6 ANNELIESE TIFFANY VST; PERSONALI PHYSICIAN GIRISH PPS S SUBSQT VST COLLECTIO 49938 ST WARD N VENOUS 6 ANNELIESE TIFFANY BLOOD [place] [address] THYROID 6 ANNELIESE ANNELIESE STIMULATI MED CTR MED CTR NG STATISTICS MANAGER ST STATISTICS MANAGER ST HORMONE TSH ALBUMIN [address] URINE 6 ANNELIESE ANNELIESE MICROALBU MED CTR MED CTR MIN STATISTICS MANAGER ST STATISTICS MANAGER ST QUANTIATI VE BLOOD [address] COUNT 6 ANNELIESE ANNELIESE COMPLETE MED CTR MED CTR AUTOMATED STATISTICS MANAGER ST STATISTICS MANAGER ST PROSTATE G0103 ST ST CANCER 6 ANNELIESE ANNELIESE SCREENING MED CTR MED CTR ; PSA STATISTICS MANAGER ST STATISTICS MANAGER ST TEST LIPID [address] PANEL 6 ANNELIESE ANNELIESE MED CTR MED CTR STATISTICS MANAGER ST STATISTICS MANAGER ST HEMOGLOBI [address] N 6 ANNELIESE ANNELIESE GLYCOSYLA MED CTR MED CTR BARBARA A1C STATISTICS MANAGER ST STATISTICS MANAGER ST COMPREHEN [address] SIVE 6 ANNELIESE ANNELIESE METABOLIC MED CTR MED CTR PANEL STATISTICS MANAGER ST STATISTICS MANAGER ST CREATININ [address] E OTHER 6 ANNELIESE ANNELIESE SOURCE MED CTR MED CTR STATISTICS MANAGER ST STATISTICS MANAGER ST NATRIURET 22338 [facility] V[facility] IC 6 [facility] PEPTIDE INC INC ECG [address] [facility] ROUTINE 6 PHYSICIAN MAT ECG S GROUP W/LEAST 12 LDS I&R ONLY BASIC 63720 [facility] METABOLIC 6 [facility] H[facility] PANEL INC INC CALCIUM TOTAL ECG 92702 [facility] V[facility] ROUTINE 6 [facility] ECG INC INC W/LEAST 12 LDS TRCG ONLY W/O I&R COLLECTIO 47643 [facility] V[facility] N VENOUS 6 [facility] [place]LOOD [place] [address] [facility] V[facility] THYROID 6 [facility] STIMULATI INC INC NG HORMONE TSH THER 44347 [facility] V[facility] PROPH/DX 6 [facility] NJX IV INC INC PUSH SINGLE/1S T SBST/DRUG FIBRIN 75241 [facility] DGRADJ 6 [facility] PRODUCTS INC INC D-DIMER QUAL/SEMI TORY ECG 58448 [facility] ROUTINE 6 [facility] ECG INC INC W/LEAST 12 LDS TRCG ONLY W/O I&R CREATINE 93516 [facility] KINASE 6 [facility] [place] [address] [facility] V[facility] LIPASE 6 [facility] INC INC RADIOLOGI 66605 [facility] ALL C 6 MEDICAL EXAMINATI IMAGING ON [place] [address] [facility] V[facility] THYROXINE 6 [facility] TOTAL INC INC CULTURE 79920 [facility] BACTERIAL 6 [facility] BLOOD INC INC AEROBIC W/ID ISOLATES BLOOD 41887 [facility] COUNT 6 [facility] COMPLETE INC INC AUTO&AUTO DIFRNTL WBC ECG 63626 CAROLINE THOMAS JR ROUTINE 6 [facility] W/LEAST P 12 LDS I&R ONLY THYROID 15107 [facility] V[facility] HORM 6 [facility] UPTK/THYR INC INC [place] [address] [facility] V[facility] TROPONIN 6 [facility] QUANTITAT INC INC LAUREL CREATINE 20991 [facility] KINASE MB 6 [facility] [place] [address] [facility] AMYLASE 6 [facility] INC INC COMPREHEN 40621 [facility] SIVE 6 [facility] METABOLIC INC INC PANEL NATRIURET 79448 [facility] IC 6 [facility] [place] [address] [facility] LACTATE 6 [facility] INC INC RADIOLOGI 89548 [facility] C EXAM 6 [facility] H[facility] CHEST 2 INC INC VIEWS FRONTAL&L ATERAL RADIOLOGI 36534 [facility] C EXAM 6 MEDICAL CHEST 2 IMAGING VIEWS ASS FRONTAL&L ATERAL URNLS DIP 48672 [facility] 6 [facility] STICK/TAB INC INC LET REAGENT AUTO MICROSCOP Y NATRIURET 26263 [facility] V[facility] IC 6 [facility] PEPTIDE INC INC COMPREHEN 68533 CAROLINE VELAZQUEZ SIVE 6 [facility] METABOLIC INC INC PANEL CREATINE 53512 CAROLINE VELAZQUEZ KINASE MB 6 [facility] [place] [address] CAROLINE VELAZQUEZ AMYLASE 6 [place] [address] CAROLINE VELAZQUEZ TROPONIN 6 [facility] [place] [address] HAM OLMEDO ABDOMEN & 6 MEDICAL SHANA PELVIS IMAGING W/CONTRAS ASS T MATERIAL ECG 11968 CAROLINE WILLIAM SHERWOOD ROUTINE 6 [facility] W/LEAST P 12 LDS I&R ONLY BLOOD 01038 CAROLINE VELAZQUEZ COUNT 6 [facility] COMPLETE INC INC AUTO&AUTO DIFRNTL WBC CREATINE 92048 CAROLINE VELAZQUEZ KINASE 6 [facility] [place] [address] CAROLINE VELAZQUEZ LIPASE 6 [facility] INC INC ECG 40883 CAROLINE VELAZQUEZ ROUTINE 6 [facility] ECG INC INC W/LEAST 12 LDS TRCG ONLY W/O I&R FIBRIN 05212 CAROLINE VELAZQUEZ DGRADJ 6 [facility] H[facility]P PRODUCTS INC INC D-DIMER QUAL/SEMI TORY LOCM Q9967 CAROLINE VELAZQUEZ [phone] [facility] MG/ML INC INC IODINE CONCENTRA TION PER ML BLD GLU A4253 [facility] TEST/REAG 6 [facility]ACY PHARMACY T STRIPS #591 #[phone] HOME BLD GLU MON-50 BLD GLU A4253 [facility] TEST/REAG 5 PHARMACY PHARMACY T STRIPS #591 #591 HOME BLD GLU MON-50 LANCETS A4259 [facility] PER BOX [address] [address] [facility] [place] #591 #[address] [facility] IC 5 ANNELIESE ERIBERTO PROPHYLAC TIC/DX PHYSICIAN INJECTION S SUBQ/IM INJECTION J1040 [facility] 5 ANNELIESE ERIBERTO METHYLPRE DNISOLONE PHYSICIAN ACETATE S [address] METABOLIC 5 ANNELIESE GUTIERREZTH PANEL MED CTR MED CTR CALCIUM STATISTICS MANAGER ST STATISTICS MANAGER ST TOTAL COLLECTIO 70173 [facility] N VENOUS 5 ANNELIESE MIC BLOOD VENIPUNCT PHYSICIAN URE S PHYS CERT G0180 [facility] MCR-COVR 5 ANNELIESE STEPHANIE JAROD HLTH SRVC PER PHYSICIAN CERT PRD S SBSQ 34333 [facility] 5 ANNELIESE GLORIA CARE/DAY 25 PHYSICIAN MINUTES S SBSQ 25879 [facility] 5 ANNELIESE CARE/DAY 25 PHYSICIAN MINUTES S ECG 56251 [facility] ROUTINE 5 ANNELIESE FLAQUITO ECG W/LEAST PHYSICIAN 12 LDS S EKG I&R ONLY INCISION 97015 [facility] & 5 [facility] DRAINAGE ABSCESS PHYSICIAN COMPLICAT S ED/MULTIP LE ANES 67507 INDEPENDE CRISPEN NERVE 5 NT [facility]D [facility] ANESTHESI TENDON OLOGIST FASCIA & BURSAE UPPER LEG INITIAL 07554 [facility] 5 ANNELIESE STEPHANIE CARE/DAY 50 PHYSICIAN MINUTES S GROUND A0425 RURAL/MET RURAL/MET MILEAGE 5 RO RO PER [place] [address] INFUSION 5 ANNELIESE ANNELIESE THERAPY/P ZAHRA ZAHRA ROPHYLAXI S /DX 1ST TO [address] [facility] ZAHRA IV PUSH EACH NEW DRUG BLOOD [address] COUNT 5 ANNELIESE GUTIERREZTH COMPLETE ZAHRA ZAHRA AUTO&AUTO DIFRNTL WBC BASIC [address] METABOLIC 5 ANNELIESE ANNELIESE PANEL ZAHRA ZAHRA CALCIUM TOTAL [place] [address] BACTERIAL 5 ANNELIESE ANNELIESE BLOOD ZAHRA ZAHRA AEROBIC W/ID ISOLATES URNLS DIP [address] 5 ANNELIESE ANNELIESE STICK/TAB ZAHRA ZAHRA LET RGNT AUTO W/[place] [address] LACTATE 5 ANNELIESE ANNELIESE ZAHRA ZAHRA INJECTION J3370 [facility] 5 ANNELIESE ANNELIESE VANCOMYCI ZAHRA ZAHRA N HCL [address] PROPH/DX 5 ANNELIESE ANNELIESE NJX EA ZAHRA ZAHRA SEQL IV PUSH SBST/DRUG FAC COLLECTIO 58448 [facility] ST. N VENOUS 5 ANNELIESE ANNELIESE BLOOD ZAHRA ZAHRA VENIPUNCT URE INJECTION J2270 [facility] MORPHINE 5 ANNELIESE ANNELIESE SULFATE ZAHRA ZAHRA UP TO [address] [facility] Z[facility]RA ON HCL PER [address] SPINE 5 ANNELIESE ANNELIESE LUMBOSACR ZAHRA ZAHRA AL MINIMUM [address] 5 ANNELIESE ANNELIESE W/[place] [address] [facility] [address] INFUSION 5 ANNELIESE ANNELIESE HYDRATION ZAHRA ZAHRA EACH ADDITIONA L HOUR AMB A0426 RURAL/MET RURAL/MET SERVICE 5 RO RO ALS AMBULANCE AMBULANCE NONEMERGE NCY TRANSPORT LEVEL 1 5% J7060 [facility] ST. DEXTROSE/ 5 [facility] WATER ZAHRA ZAHRA LOCM Q9967 ST ST. [phone] 5 ANNELIESE ANNELIESE MG/ML ZAHRA ZAHRA IODINE CONCENTRA TION PER ML THERAPEUT 48196 [facility] IC 5 ANNELIESE ERIBERTO PROPHYLAC TIC/DX PHYSICIAN INJECTION S SUBQ/IM INJECTION J1885 [facility] 5 ANNELIESE COY KETOROLAC PHYSICIAN PHYSICIAN TROMETHAM S S INE PER [address] D[address] [facility] 5 ANNELIESE ERIBERTO STICK/TAB LET RGNT PHYSICIAN NON-AUTO S W/O MICRSCP URNLS DIP 69867 ST [facility] 5 ANNELIESE THOMAS ALISTAIR STICK/TAB LET RGNT PHYSICIAN NON-AUTO S W/O MICRSCP CREATININ 09222 ST E OTHER 5 ANNELIESE COY SOURCE MED CTR MED CTR STATISTICS MANAGER ST STATISTICS MANAGER ST GLUC BLD 39998 [facility] GLUC MNTR 5 ANNELIESE THOMAS ALISTAIR DEV CLEARED PHYSICIAN FDA SPEC S HOME USE INJECTION J1885 ST ST 5 ANNELIESE COY KETOROLAC PHYSICIAN PHYSICIAN DONALDO S S INE PER [address] URINE 5 ANNELIESE ANNELIESE MICROALBU MED CTR MED CTR MIN STATISTICS MANAGER ST STATISTICS MANAGER ST QUANTIATI VE THERAPEUT 40716 ST [facility]ZO IC 5 ANNELIESE WILLIAM ALISTAIR PROPHYLAC TIC/DX PHYSICIAN INJECTION S SUBQ/IM HOME E0607 [facility] BLOOD 5 PHARMACY PHARMACY GLUCOSE #584 #584 MONITOR BLD GLU A4253 [facility] TEST/REAG 5 PHARMACY PHARMACY T STRIPS #584 #584 HOME BLD GLU MON-50 LANCETS A4259 [facility] PER BOX 5 PHARMACY PHARMACY OF 100 #584 #[address] [place] [address] BLOOD/URI 5 ANNELIESE COY C ACID MED CTR MED CTR STATISTICS MANAGER ST STATISTICS MANAGER ST LIPID [address] PANEL 5 ANNELIESE ANNELIESE MED CTR MED CTR STATISTICS MANAGER ST STATISTICS MANAGER ST HEMOGLOBI [address] N 5 ANNELIESE ANNELIESE GLYCOSYLA MED CTR MED CTR BARBARA A1C STATISTICS MANAGER ST STATISTICS MANAGER ST COMPREHEN [address] SIVE 5 ANNELIESE ANNELIESE METABOLIC MED CTR MED CTR PANEL STATISTICS MANAGER ST STATISTICS MANAGER ST Encounters Encounter Start End Date Code Location Performer Type Date [facility] - 7 7 [facility] OUTPATIEN INC T EMERGENCY 38797 NEERAJ JEROME 7 7 PHYSICIAN DEPARTMEN S, PLLC T VISIT HIGH/URGE NT SEVERITY OFFICE 89293 [facility] OUTPATIEN 7 7 ANNELIESE T VISIT 25 PHYSICIAN MINUTES S [facility] [address] - OTHER 7 7 ANNELIESE [facility] EDGE OFFICE 12570 [facility] 7 7 ANNELIESE T VISIT 25 PHYSICIAN MINUTES S OFFICE 91458 [facility] 7 7 ANNELIESE T VISIT 15 PHYSICIAN MINUTES S OFFICE 01974 [facility] 7 7 ANNELIESE T VISIT [address] - OTHER 7 7 [facility] EDGE EMERGENCY 79693 [facility] 7 7 [facility] T VISIT LOW/MODER SEVERITY [facility] - 7 7 [facility] OUTPATIEN [facility] EMERGENCY 85758 NEERAJ SIMMS, 7 7 PHYSICIAN JR DEPARTMEN S, [facility] T VISIT MODERATE SEVERITY HOSPITAL [facility] - 7 7 [facility] OUTPATIEN [facility] CAROLINE - 6 6 [facility] OUTPATIEN [facility] CAROLINE - 6 6 [facility]PATI[facility] CAR[facility]INE - OTHER 6 6 [facility] OFFICE 02112 [facility] OUTPATIEN 6 6 PHYSICIAN MAT T VISIT S GROUP 25 MINUTES HOSPITAL [facility] - 6 6 [facility] OUTPATIEN [facility] CAROLINE - 6 6 [facility] OUTPATIEN [facility] ST OTHER 6 6 [facility] STATISTICS MANAGER OFFICE 72876 [facility]ST[facility] OUTPATIEN 6 6 PHYSICIAN MAT T NEW 60 S GROUP MINUTES HOSPITAL [facility] - 6 6 [facility] OUTPATIEN [facility] EMERGENCY 04536 [facility] 6 6 [facility] T VISIT HIGH/URGE NT SEVERITY EMERGENCY 01731 NEERAJ SALAZAR DEPT 6 6 PHYSICIAN U FALQUITO VISIT S, PLLC HIGH SEVERITY& THREAT [facility]UNCJ [facility]OSPITAL [facility] - 6 6 [facility] OUTPATIEN INC T [facility] - 6 6 [facility] OUTPATIEN INC T EMERGENCY 79698 [facility] 6 6 [facility] DEPARTMEN INC T VISIT MODERATE SEVERITY EMERGENCY [facility] PHYSICIAN U FLAQUITO VISIT S, [facility] HIGH SEVERITY& THREAT FUNCJ OFFICE [address] [facility] OUTPATIEN 5 5 ANNELIESE ERIBERTO T VISIT 25 PHYSICIAN MINUTES S OFFICE [address] [facility] OUTPATIEN 5 5 ANNELIESE STEPHANIE T VISIT 25 PHYSICIAN MINUTES [facility] ST - OTHER 5 5 ANNELIESE [facility] OFFICE [address] [facility] OUTPATIEN 5 5 ANNELIESE STEPHANIE T VISIT [address] ACCESS 5 5 [facility] ZAHRA EMERGENCY [address] ST[address] DEPT 5 5 ANNELIESE VISIT ZAHRA HIGH SEVERITY& THREAT FUNCJ OFFICE 70314 [facility] OUTPATIEN 5 5 ANNELIESE ERIBERTO T VISIT 25 PHYSICIAN MINUTES S OFFICE [address] [facility] OUTPATIEN 5 5 ANNELIESE WILLIAM ALISTAIR T VISIT 25 PHYSICIAN [address] [facility] ST - OTHER 5 5 [facility]E [facility] ST - OTHER 5 5 ANNELIESE MED CTR [facility] ST OFFICE [address] [facility] OUTPATIEN 5 5 ANNELIESE BLADIMIR T VISIT 25 PHYSICIAN MINUTES S
--- OUTSIDE RECORDS SUMMARY | 2017-03-28 22:53 | External Medical Summary Rpt ---
Author Author , LISA Organization LISA Address Unknown Phone [email or web address] Care Team Providers Care Sql Analyst Name Role Phone [facility] Unavailable [...] Unavailable Unavailable JR QUEENIE, QUEENIE Unavailable Unavailable [facility] Unavailable Unavailable INC, [facility] Unavailable Unavailable HOSPITAL P, [facility] P [facility], Unavailable Unavailable [facility] Unavailable Unavailable IM[facility]ING [facility], [facility] WILLIAM JR DWI, WILLIAM Unavailable Unavailable JR DWI ZULY GRE, Unavailable Unavailable ZULY GRE ZULY GRE, Unavailable Unavailable ZULY GRE JOVANY WILLIAM ALISTAIR, Unavailable Unavailable MANZO WILLIAM ALISTAIR [facility], Unavailable Unavailable [facility], [facility], [facility] Un[facility] SCHACK BLADIMIR, SCHACK Unavailable Unavailable BLADIMIR ROBIN, ROBIN Unavailable Unavailable ROBIN STEPHANIE, ROBIN Unavailable Unavailable STEPHANIE SHANEHSAZ GLORIA, Unavailable Unavailable SHANEHSAZ GLORIA ERNESTO, ERNESTO Unavailable Unavailable ERNESTO MAT, Unavailable Unavailable ERNESTO MAT SOTINGEANU FLAQUITO, Unavailable Unavailable SOTINGEANU FLAQUITO ST [facility] Unavailable Unavailable [facility] Unavailable Unavailable [facility]NA[facility] UNLOAD[facility], [facility] Unavailable Unavailable PHYSICIANS, [facility] Unavailable Unavailable PHYSICIANS EKG, [facility] ZAHRA, Unavailable Unavailable [facility]. 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 THY [id number] PAIN IN 02-16-2017 [facility], [facility] [id number] PAIN IN 02-16-2017 [facility] LEFT FOOT [facility], [facility] N289 DISORDER OF 02-16-2017 [facility] KIDNEY [facility], [facility]RE[facility] UNSPECIFIED [id number] OTHER 02-11-2017 SY[facility], INC SPECIFIED ARTHRITIS RIGHT SHOULDER I5020 UNSPECIFIED 02-07-2017 [facility] SYSTOLIC PHYSICIANS CONGESTIVE GROUP HEART FAILURE [...] CHRONIC 01-14-2017 ST FATIGUE [facility] UNSPECIFIED PHYSICIANS [id number] PRESENCE 01-04-2017 [facility] AUTO PHYSICIANS IMPLANTABLE GROUP CARDIAC DEFIBRILLAT [...] [facility] H[facility] UNSPECIFIED INC R0602 SHORTNESS 09-29-2016 [facility] [place] [facility] Z951 PRESENCE OF 09-29-2016 [facility] AORT[facility]ONA [facility] RY BYPASS GRAFT I472 VENTRICULAR 08-10-2016 [facility] TACHYCARDIA GROUP H538 OTHER 07-10-2016 ZULY VISUAL GRE DISTURBANCE S E118 TYPE 2 05-07-2016 [facility] MELLITUS INC W/UNS COMPLICATIO NS Z9889 OTHER 05-07-2016 [facility] SPECIFIED MEDICAL POSTPROCEDU IMAGING ASS RAL STATES R0600 DYSPNEA 05-06-2016 [facility] UNSPECIFIED [facility] INC [id number] OTH SPEC 05-06-2016 [facility] COMP VASC [facility] PROSTH DEVC INC IMPL GFT INIT ENC R000 TACHYCARDIA 05-05-2016 [facility] UNSPECIFIED GROUP Z0000 ENCOUNTER 04-29-2016 ST GEN ADULT [facility] MED EXAM PHYSICIANS W/O ABNORMAL FIND Z125 ENCOUNTER 04-29-2016 ST SCREENING ANN[facility]IES[facility] MALIGNANT PHYSICIANS NEOPLASM PROSTATE C71860 ENCOUNTER 04-29-2016 ST FOR [facility] SCREENING PHYSICIANS FOR LIPOID DISORDERS Z1329 ENCOUNTER 04-29-2016 ST SCREEN OT [facility] SUSPECTED PHYSICIANS ENDOCRN DISORDER I5023 ACUTE CHRON 04-23-2016 [facility] SYSTOLIC [facility], HEART PLLC FAILURE J811 CHRONIC 04-23-2016 [facility] [place] PULMONARY [facility] EDEMA [facility] R0789 OTHER CHEST 12-02-2015 [facility] PAIN [facility] R1012 LEFT UPPER 12-02-2015 [facility] [facility]IN [facility] R109 UNSPECIFIED 12-02-2015 [facility] ABDOMINAL [facility]YSICI[facility], PAIN PLLC J02528S STRAIN 12-02-2015 [facility] P TENDON ABD INITIAL ENCNTR N528 OTHER MALE 08-19-2015 ERECTILE ANN[facility] DYSFUNCTION PHYSICIANS R7989 OTHER SPEC 08-19-2015 ABNORMAL ANN[facility] FINDINGS PHYSICIANS BLOOD CHEMISTRY D48725 OTHER LONG 08-19-2015 TERM ANNELIESE CURRENT PHYSICIANS DRUG THERAPY E1142 TYPE 2 07-22-2015 DIABETES ANNELIESE MELLITUS PHYSICIANS W/DIAB POLYNEUROPA THY E6601 MORBID 07-22-2015 SEVERE ANNELIESE OBESITY DUE PHYSICIANS TO EXCESS CALORIES E871 HYPO-OSMOLA 07-22-2015 ST LITY AND ANNELIESE HYPONATREMI PHYSICIANS A R76151 CUTANEOUS 07-22-2015 ST ABSCESS OF ANNELIESE LEFT LOWER PHYSICIANS LIMB Z09 ENC F/U 07-22-2015 ST EXAM AFTR ANNELIESE CMPL TX OTH PHYSICIANS THAN THOMPSON NEOPLSM Z4801 ENCOUNTER 07-21-2015 ST CHANGE/KAYLEE ANNELIESE CINDY PHYSICIANS SURGICAL WOUND DRESSING I06223 ENCOUNTER 07-21-2015 ST SURG ANNELIESE AFTERCARE PHYSICIANS FLW SURG SKIN&SUBQ TISS E1149 TYPE 2 07-19-2015 DIABETES ANNELIESE MELLITUS PHYSICIANS W/OTH DIAB NEURO COMP X64837 PAIN IN 07-19-2015 LEFT LEG ANNELIESE PHYSICIANS K5900 CONSTIPATIO 07-17-2015 ST N ANNELIESE UNSPECIFIED PHYSICIANS A28895 ENCOUNTER 07-17-2015 ST FOR ANNELIESE PREPROCEDUR PHYSICIANS AL EKG CARIOVASCUL AR EXAM E669 OBESITY 07-16-2015 ST. UNSPECIFIED ANNELIESE ZAHRA B13880 CUTANEOUS 07-16-2015 ST. ABSCESS OF ANNELIESE PERINEUM ZAHRA V94917 CELLULITIS 07-16-2015 ST. OF LEFT ANNELIESE LOWER LIMB ZAHRA U90079 CELLULITIS 07-16-2015 [facility] UNSPECIFIED PART OF LIMB Z7982 MCFP 07-16-2015 . 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 K529 NONINFECTIV [...] OF 100 DIABETIC DIABETIC SUPPLIE SUPPLIE ECG 38692 [facility] V[facility] ROUTINE 7 [facility] ECG INC INC W/LEAST 12 LDS TRCG ONLY W/O I&[place] [address] [facility] BLOOD/URI 7 [facility] C ACID INC INC SEDIMENTA 20618 [facility] TION RATE 7 [facility] RBC INC INC NON-AUTOM ATED THER 59538 [facility] PROPH/DX 7 [facility] NJX IV INC INC PUSH SINGLE/1S T SBST/DRUG C-REACTIV 11450 [facility] E PROTEIN 7 [facility] INC INC COMPREHEN 50760 [facility] SIVE 7 [facility] METABOLIC INC INC PANEL BLOOD 71509 [facility] COUNT 7 [facility] COMPLETE INC INC AUTO&AUTO DIFRNTL WBC THERAPEUT 35222 [facility] IC 7 [facility] INJECTION INC INC IV PUSH EACH NEW DRUG SEWHO L3960 SYMED, SYMED, ABDUCT 7 INC INC PSTN AIRPLANE DESN PREFAB W/FIT&ADJ FOR DIAB A5513 CLINIC CLINIC ONLY MX 7 PHARMACY PHARMACY DNSITY INSRT CSTM MOLD CSTM EA DIAB ONLY A5500 CLINIC CLINIC FIT CSTM 7 PHARMACY PHARMACY PREP&SPL SHOE MX DNSITY INSRT INTERROGA 81761 [facility] ERNESTO TION EVAL 7 PHYSICIAN REMOTE S GROUP </30 D CV MNTR SYS LSO L0650 SYMED, SYMED, SAGITTAL- 7 INC INC CORONAL CONTRL RIGD ANT POST PANELS COLLECTIO 54012 ST ROBIN N VENOUS 7 ANNELIESE BLOOD VENIPUNCT PHYSICIAN URE S INJ J0702 [address] ST BETAMETHA 7 ANNELIESE ANNELIESE SONE ACETATE & PHYSICIAN PHYSICIAN S S PHOSPHATE [address] ROBIN IC 7 ANNELIESE PROPHYLAC TIC/DX PHYSICIAN INJECTION S SUBQ/IM INJECTION J1040 ST ST 7 ANNELIESE ANNELIESE METHYLPRE DNISOLONE PHYSICIAN PHYSICIAN ACETATE S [place] [address] [place] [address] TESTOSTER 7 ANNELIESE [facility]ELIESE [facility] EDGE HEMOGLOBI [address] ST ROBIN N 7 ANNELIESE GLYCOSYLA BARBARA A1C PHYSICIAN S INTERROGA 02941 [facility] ER[facility] TION EVAL 7 PHYSICIAN REMOTE S GROUP </90 D 1/2/MANAGER MONEY LD DFB INTERROGA 30925 [facility] ER[facility] TION EVAL 7 PHYSICIAN REMOTE S GROUP </30 D CV MNTR SYS [facility] A4258 A A WERED 7 SPECIALTY SPECIALTY [...] HOME BLD SUPPLIE SUPPLIE GLU MON-50 INTERROGA 29054 [facility] SHAHID EVAL 7 PHYSICIAN REMOTE S GROUP </30 D CV MNTR SYS LIPID 74842 [facility] PANEL 7 [facility] EDGE E EDGE HEMOGLOBI 27932 [facility] N 7 [facility] GLYCOSYLA BARBARA A1C HEALTHCAR HEALTHCAR E EDGE E EDGE DRUG TEST 64382 [facility] PRSMV 7 [facility] INSTRMNT CHEMISTRY HEALTHCAR HEALTHCAR E EDGE E EDGE ANALYZERS COMPREHEN 19199 [facility] SIVE 7 [facility] METABOLIC PANEL HEALTHCAR HEALTHCAR E EDGE E EDGE DRUG TEST G0480 [facility] DEFINITV 7 [facility] DR ID METH P HEALTHCAR HEALTHCAR DAY 1- E EDGE E EDGE DRUG CL INTERROGA 70959 [facility] ESCUDERO 7 PHYSICIAN REMOTE S GROUP </30 D CV MNTR SYS BASIC 49463 [facility] METABOLIC 7 [facility] PANEL INC INC CALCIUM TOTAL BLOOD 05326 [facility] COUNT 7 [facility] COMPLETE INC INC AUTO&AUTO DIFRNTL WBC NATRIURET 09879 [facility] V[facility] IC 7 [facility] PEPTIDE INC INC HEPATIC 03982 [facility] FUNCTION 7 [facility] [place] [address] [facility] FREE 7 [facility] THYROXINE INC INC ECG 60798 [facility] ROUTINE 7 [facility] ECG INC INC W/LEAST 12 LDS TRCG ONLY W/O I&[place] [address] [facility] THYROID 7 [facility] STIMULATI INC INC NG HORMONE TSH COLLECTIO 97930 [facility] N VENOUS 7 [facility] BLOOD INC INC VENIPUNCT URE RADIOLOGI 07607 [facility] C EXAM 7 MEDICAL CHEST 2 IMAGING VIEWS ASS FRONTAL&L ATERAL INTERROGA 16105 [facility] TION EVAL 6 PHYSICIAN REMOTE S GROUP </90 D 1/2/MANAGER MONEY LD DFB INTERROGA 45150 [facility] TION EVAL 6 PHYSICIAN REMOTE S GROUP </30 D CV MNTR SYS ECG 61790 [facility] ROUTINE 6 PHYSICIAN ECG S GROUP W/LEAST 12 LDS I&R ONLY OPHTH 04290 [facility] 6 GRE GRE XM&EVAL COMPRE NEW PT 1/> VST ECG 27858 [facility] ROUTINE 6 [facility] ECG INC INC W/LEAST 12 LDS TRCG ONLY W/O I&R INTERROGA 14325 [facility] TION EVAL 6 PHYSICIAN MAT REMOTE S GROUP </30 D CV MNTR SYS PRGRMG 12006 [facility] EVAL 6 PHYSICIAN MAT IMPLANTAB S GROUP LE IN PRSN DUAL LEAD DFB RADIOLOGI 33333 [place] [facility] ALL C 6 MEDICAL EXAMINATI IMAGING [place] [address] [facility] INFUSION 6 [facility] THERAPY INC INC PROPHYLAX IS/DX EA HOUR INJECTION J2405 [facility] 6 [facility] ONDANSETR INC INC ON HCL PER 1 MG LEAD C1898 [facility] PACEMKR 6 [facility] OTH THAN INC INC TRNS VDD SINGLE PASS GLUC BLD 35797 [facility] GLUC MNTR 6 [facility] DEV INC INC CLEARED FDA SPEC HOME USE INSJ/RPLC 37567 [facility] MT PERM 6 PHYSICIAN MAT DFB S GROUP W/TRNSVNS LDS 1/[place] [address] [facility] INFUSION 6 [facility] THERAPY/P INC INC ROPHYLAXI S /DX 1ST TO 1 HR THERAPEUT 10089 [facility] V[facility] IC 6 [facility] INJECTION INC INC IV PUSH EACH NEW DRUG CARDIOVER C1721 [facility]EL[facility] TER-DEFIB 6 [facility] RILLATOR INC INC DUAL CHAMBER SHOULDER L3670 [facility] 6 TECHNOLOG TECHNOLOG ACROMIO/C IES INC IES INC LAVICULAR PREFAB LEAD C1777 [facility] CARDIOVER 6 [facility] T-DEFIB INC INC ENDOCARDI AL SINGLE COIL BASIC 07533 [facility] METABOLIC 6 [facility] PANEL INC INC CALCIUM TOTAL COLLECTIO 62595 [facility] V[facility] N VENOUS 6 [facility] BLOOD INC INC VENIPUNCT URE ECG 25356 [facility] ROUTINE 6 [facility] ECG INC INC W/LEAST 12 LDS TRCG ONLY W/O I&R ECG 29414 [facility] ROUTINE 6 PHYSICIAN MAT ECG S GROUP W/LEAST 12 LDS I&R ONLY ECHO 10514 [facility] TTHRC R-T 6 [facility] 2D INC INC W/WOM-MOD E COMPL SPEC&COLR D MYOCARDIA 65870 [facility]INE[facility]LANDO VELAZQUEZ L SPECT 6 [facility] MULTIPLE INC INC STUDIES CV STRS 93849 [facility] MARGARITO TST 6 PHYSICIAN XERS&/OR S GROUP RX CONT ECG W/O I&R CV STRS 02754 CAROLINE CAROLINE TST 6 [facility] XERS&/OR INC INC RX CONT ECG TRCG ONLY TECHNETIU A9500 [facility] V[facility] M TC-99M 6 [facility] SESTAMIBI INC INC DX PER STUDY DOSE INJECTION J2785 [facility] VELAZQUEZ 6 [facility] REGADENOS INC INC ON 0.[address] [facility]ARD WELLNESS 6 ANNELIESE TIFFANY VST; PERSONALI PHYSICIAN GIRISH PPS S SUBSQT VST COLLECTIO 45277 ST WARD N VENOUS 6 ANNELIESE TIFFANY BLOOD [place] [address] THYROID 6 ANNELIESE ANNELIESE STIMULATI MED CTR MED CTR NG FURNACE UNLOAD[facility] ST FURNACE UNLOADER ST HORMONE TSH ALBUMIN [address] URINE 6 ANNELIESE ANNELIESE MICROALBU MED CTR MED CTR MIN FURNACE UNLOADER ST FURNACE UNLOADER ST QUANTIATI VE BLOOD [address] COUNT 6 ANNELIESE ANNELIESE COMPLETE MED CTR MED CTR AUTOMATED FURNACE UNLOADER ST FURNACE UNLOADER ST PROSTATE G0103 ST ST CANCER 6 ANNELIESE ANNELIESE SCREENING MED CTR MED CTR ; PSA FURNACE UNLOADER ST FURNACE UNLOADER ST TEST LIPID [address] PANEL 6 ANNELIESE ANNELIESE MED CTR MED CTR FURNACE UNLOADER ST FURNACE UNLOADER ST HEMOGLOBI [address] N 6 ANNELIESE ANNELIESE GLYCOSYLA MED CTR MED CTR BARBARA A1C FURNACE UNLOADER ST FURNACE UNLOADER ST COMPREHEN [address] SIVE 6 ANNELIESE ANNELIESE METABOLIC MED CTR MED CTR PANEL FURNACE UNLOADER ST FURNACE UNLOADER ST CREATININ [address] E OTHER 6 ANNELIESE ANNELIESE SOURCE MED CTR MED CTR FURNACE UNLOADER ST FURNACE UNLOADER ST NATRIURET 37904 [facility] V[facility] IC 6 [facility] PEPTIDE INC INC ECG 83849 [facility] ROUTINE 6 PHYSICIAN MAT ECG S GROUP W/LEAST 12 LDS I&R ONLY BASIC 36787 CAR[facility]INE VELAZQUEZ METABOLIC 6 [facility] PANEL INC INC CALCIUM TOTAL ECG 66748 [facility] VELAZQUEZ ROUTINE 6 [facility] ECG INC INC W/LEAST 12 LDS TRCG ONLY W/O I&R COLLECTIO 90290 [facility] VELAZQUEZ N VENOUS 6 [facility] BLOOD [place] [address] CAR[facility]INE VELAZQUEZ THYROID 6 [facility] STIMULATI INC INC NG HORMONE TSH THER 49180 CAR[facility] VELAZQUEZ PROPH/DX 6 [facility] NJX IV INC INC PUSH SINGLE/1S T SBST/DRUG FIBRIN 03015 [facility] VELAZ[facility]Z DGRADJ 6 [facility] PRODUCTS INC INC D-DIMER QUAL/SEMI TORY ECG 88202 CAR[facility]INE VELAZQUEZ ROUTINE 6 [facility] ECG INC INC W/LEAST 12 LDS TRCG ONLY W/O I&R CREATINE 43618 CAR[facility]INE VELAZQUEZ KINASE 6 [facility] [place] [address] CAR[facility]INE VELAZQUEZ LIPASE 6 [facility] INC INC RADIOLOGI 20851 [facility] ALL C 6 MEDICAL EXAMINATI IMAGING ON [place] [address] CAROLINE VELAZQUEZ THYROXINE 6 [facility] TOTAL INC INC CULTURE 20045 [facility] VELAZ[facility]Z BACTERIAL 6 [facility] BLOOD INC INC AEROBIC W/ID ISOLATES BLOOD 80374 [facility] VELAZQUE[facility] COUNT 6 [facility] COMPLETE INC INC AUTO&AUTO DIFRNTL WBC ECG 62702 CAROLINE THOMAS JR ROUTINE 6 [facility] W/LEAST P 12 LDS I&R ONLY THYROID 52418 CAROLINE VELAZQUEZ HORM 6 [facility] UPTK/THYR INC INC [place] [address] CAROLINE VELAZQUEZ TROPONIN 6 [facility] QUANTITAT INC INC LAUREL CREATINE 27014 CAR[facility]INE VELAZQUEZ KINASE MB 6 [facility] [place] [address] CAR[facility]INE VELAZQUEZ AMYLASE 6 [facility] INC INC COMPREHEN 88039 [facility] VELAZ[facility] SIVE 6 [facility] METABOLIC INC INC PANEL NATRIURET 93349 [facility] IC 6 [facility] [place] [address] CAR[facility]INE VELAZQUEZ LACTATE 6 [facility] INC INC RADIOLOGI 09521 CAR[facility] VELAZQUEZ C EXAM 6 [facility] CHEST 2 INC INC VIEWS FRONTAL&L ATERAL RADIOLOGI 04660 [facility] C EXAM 6 MEDICAL CHEST 2 IMAGING VIEWS ASS FRONTAL&L ATERAL URNLS DIP 36903 [facility] VELAZQUEZ 6 [facility] STICK/TAB INC INC LET REAGENT AUTO MICROSCOP Y NATRIURET 37909 [facility] VELAZQUEZ IC 6 [facility] PEPTIDE INC INC COMPREHEN 08142 CAROLINE VELAZQUEZ SIVE 6 [facility] METABOLIC INC INC PANEL CREATINE 28105 CAROLINE VELAZQUEZ KINASE MB 6 [facility] [place] [address] CAROLINE VELAZQUEZ AMYLASE 6 [place] [address] CAROLINE VELAZQUEZ TROPONIN 6 [facility] [place] [address] HMA OLMEDO ABDOMEN & 6 MEDICAL SHANA PELVIS IMAGING W/CONTRAS ASS T MATERIAL ECG 14598 CAROLINE WILLIAM SHERWOOD ROUTINE 6 [facility] W/LEAST P 12 LDS I&R ONLY BLOOD 20388 CAROLINE VELAZQUEZ COUNT 6 [facility] COMPLETE INC INC AUTO&AUTO DIFRNTL WBC CREATINE 29737 CAROLINE VELAZQUEZ KINASE 6 [facility] [place] [address] CAROLINE VELAZQUEZ LIPASE 6 [facility] INC INC ECG 26937 CAROLINE VELAZQUEZ ROUTINE 6 [facility] ECG INC INC W/LEAST 12 LDS TRCG ONLY W/O I&R FIBRIN 43490 CAR[facility]INE VELAZQUEZ DGRADJ 6 [facility] PRODUCTS INC INC D-DIMER QUAL/SEMI TORY LOCM Q9967 CAROLINE VELAZQUEZ 300-399 6 [facility] MG/ML INC INC IODINE CONCENTRA TION PER ML BLD GLU A4253 [facility] TEST/REAG 6 [facility]ACY PHARMACY T STRIPS #591 #591 HOME BLD GLU MON-50 BLD GLU A4253 [facility] TEST/REAG 5 PHARMACY PHARMACY T STRIPS #591 #591 HOME BLD GLU MON-50 LANCETS A4259 [facility] PER [facility]OX 5 [facility] #591 #[address] SHEEHAN IC 5 ANNELIESE ERIBERTO PROPHYLAC TIC/DX PHYSICIAN INJECTION S SUBQ/IM INJECTION J1040 ST SHEEHAN 5 ANNELIESE ERIBERTO METHYLPRE DNISOLONE PHYSICIAN ACETATE S [address] METABOLIC 5 ANNELIESE GUTIERREZTH PANEL MED CTR MED CTR CALCIUM FURNACE UNLOADER ST FURNACE UNLOADER ST TOTAL COLLECTIO 04320 [facility] N VENOUS 5 ANNELIESE MIC BLOOD VENIPUNCT PHYSICIAN URE S PHYS CERT G0180 [facility] MCR-COVR 5 ANNELIESE STEPHANIE JAROD HLTH SRVC PER PHYSICIAN CERT PRD S SBSQ 17564 [facility] 5 ANNELIESE GLORIA CARE/DAY 25 PHYSICIAN MINUTES S SBSQ [address]85[address] [facility] 5 ANNELIESE CARE/DAY 25 PHYSICIAN MINUTES S ECG 17946 [facility] ROUTINE 5 ANNELIESE FLAQUITO ECG W/LEAST PHYSICIAN 12 LDS S EKG I&R ONLY INCISION 14166 [facility] DRAINAGE ABSCESS PHYSICIAN COMPLICAT S ED/MULTIP LE ANES 65559 INDEPENDE CRISPEN NERVE 5 NT [facility] ANESTHESI TENDON OLOGIST FASCIA & BURSAE UPPER LEG INITIAL 50457 [facility] 5 ANNELIESE STEPHANIE CARE/DAY 50 PHYSICIAN MINUTES S GROUND A0425 RURAL/MET RURAL/MET MILEAGE 5 RO RO [place] [address] INFUSION 5 ANNELIESE ANNELIESE THERAPY/P ZAHRA ZAHRA ROPHYLAXI S /DX 1ST TO [address] IC [address] [facility] ZAHRA ZAHRA IV PUSH EACH NEW DRUG BLOOD [address] COUNT 5 ANNELIESE GUTIERREZTH COMPLETE ZAHRA ZAHRA AUTO&AUTO DIFRNTL WBC BASIC [address] METABOLIC 5 ANNELIESE ANNELIESE PANEL ZAHRA ZAHRA CALCIUM TOTAL CULTURE [address] BACTERIAL 5 ANNELIESE ANNELIESE BLOOD ZAHRA ZAHRA AEROBIC W/ID ISOLATES URNLS DIP [address] 5 ANNELIESE ANNELIESE STICK/TAB ZAHRA ZAHRA LET RGNT AUTO W/[place] [address] LACTATE 5 ANNELIESE ANNELIESE ZAHRA ZAHRA INJECTION J3370 [facility] ST[facility] 5 ANNELIESE ANNELIESE VANCOMYCI ZAHRA ZAHRA N HCL [address] PROPH/DX 5 ANNELIESE ANNELIESE NJX EA ZAHRA ZAHRA SEQL IV PUSH SBST/DRUG FAC COLLECTIO 21914 [facility] ST. N VENOUS 5 ANNELIESE ANNELIESE BLOOD ZAHRA ZAHRA VENIPUNCT URE INJECTION J2270 [facility] MORPHINE 5 ANNELIESE ANNELIESE SULFATE ZAHRA ZAHRA UP TO [address] [facility] ZAHRA ON HCL PER [address] SPINE 5 ANNELIESE ANNELIESE LUMBOSACR ZAHRA ZAHRA AL MINIMUM [address] PEL[address] 5 ANNELIESE ANNELIESE W/[place] [address] [facility] ST INFUSION 5 ANNELIESE ANNELIESE HYDRATION ZAHRA ZAHRA EACH ADDITIONA L HOUR AMB A0426 RURAL/MET RURAL/MET SERVICE 5 RO RO ALS AMBULANCE AMBULANCE NONEMERGE NCY TRANSPORT LEVEL 1 5% J7060 [facility] ST. DEXTROSE/ 5 [facility] ZAHRA ZAHRA LOCM Q9967 ST ST. 300-399 5 ANNELIESE ANNELIESE MG/ML ZAHRA ZAHRA IODINE CONCENTRA TION PER ML THERAPEUT 62861 [facility] IC 5 ANNELIESE ERIBERTO PROPHYLAC TIC/DX PHYSICIAN INJECTION S SUBQ/IM INJECTION J1885 [facility] 5 ANNELIESE COY KETOROLAC PHYSICIAN PHYSICIAN TROMETHAM S S INE PER [address] [facility]AN 5 ANNELIESE ERIBERTO STICK/TAB LET RGNT PHYSICIAN NON-AUTO S W/O MICRSCP URNLS DIP 67553 ST [facility] 5 ANNELIESE THOMAS ALISTAIR STICK/TAB LET RGNT PHYSICIAN NON-AUTO S W/O MICRSCP CREATININ 87105 ST E OTHER 5 ANNELIESE [facility] MED CTR FURNACE UNLOADER ST FURNACE UNLOADER ST GLUC BLD 67676 [facility] GLUC MNTR 5 ANNELIESE THOMAS ALISTAIR DEV CLEARED PHYSICIAN FDA SPEC S HOME USE INJECTION J1885 ST ST 5 ANNELIESE COY KETOROLAC PHYSICIAN PHYSICIAN DONALDO S S INE PER [address] URINE 5 ANNELIESE ANNELIESE MICROALBU MED CTR MED CTR MIN FURNACE UNLOADER ST FURNACE UNLOADER ST QUANTIATI VE THERAPEUT 68422 ST [facility] IC 5 ANNELIESE WILLIAM ALISTAIR PROPHYLAC TIC/DX PHYSICIAN INJECTION S SUBQ/IM HOME E0607 [facility] BLOOD 5 PHARMACY PHARMACY GLUCOSE #584 #584 MONITOR BLD GLU A4253 [facility] TEST/REAG 5 PHARMACY PHARMACY T STRIPS #584 #584 HOME BLD GLU MON-50 LANCETS A4259 [facility] PER BOX 5 PHARMACY PHARMACY OF 100 #584 #[address] [place] [address] BLOOD/URI 5 ANNELIESE COY C ACID MED CTR MED CTR [address]NA[address]LOADER ST [facility]LOADER ST LIPID [address] PANEL 5 ANNELIESE ANNELIESE MED CTR MED CTR FURNACE UNLOADER ST FURNACE UNLOADER ST HEMOGLOBI [address] N 5 ANNELIESE ANNELIESE GLYCOSYLA MED CTR MED CTR BARBARA A1C FURNACE UNLOADER ST FURNACE UNLOADER ST COMPREHEN [address] SIVE 5 ANNELIESE ANNELIESE METABOLIC MED CTR MED CTR PANEL FURNACE UNLOADER ST FURNACE UNLOADER ST Encounters Encounter Start End Date Code Location Performer Type Date [facility] 7 7 [facility] T EMERGENCY [id number] NEERAJ JEROME 7 7 PHYSICIAN DEPARTMEN S, PLLC T VISIT HIGH/URGE NT SEVERITY OFFICE 40747 [facility] OUT[facility]IEN 7 7 ANNELIESE T VISIT 25 PHYSICIAN [address] [facility] - OTHER 7 7 [facility] OFF[facility] 57242 [facility] 7 ANNELIESE T VISIT 25 PHYSICIAN MINUTES S OFFICE 26674 [facility] 7 7 ANNELIESE T VISIT 15 PHYSICIAN MINUTES S OFFICE 77995 [facility] 7 7 ANNELIESE T VISIT [address] - OTHER 7 7 [facility] 10212 [facility] 7 7 [facility] T VISIT LOW/MODER SEVERITY [facility] - 7 7 [facility] EMERGENCY 27201 NEERAJ SIMMS, 7 7 PHYSICIAN JR DEPARTMEN S, [facility] T VISIT MODERATE SEVERITY [facility] - 7 7 [facility] - 6 6 [facility] H[facility]PITAL [facility] - 6 6 [facility] OTHER 6 6 [facility] OFFICE [id number] [facility] OUTPATI[facility] 6 6 PHYSICIAN MAT T VISIT S GROUP 25 MINUTES HOSPITAL [facility] - 6 6 [facility] HOSPITAL [facility] - 6 6 [facility] OTHER 6 6 [facility] 40563 [facility] 6 6 PHYSICIAN MAT T NEW 60 S GROUP MINUTES HOSPITAL [facility] - 6 6 [facility] EMERGENCY 49767 [facility] 6 6 [facility] DEPARTMEN [facility] T VISIT HIGH/URGE NT SEVERITY EMERGENCY 18594 NEERAJ SALAZAR DEPT 6 6 PHYSICIAN U FLAQUITO VISIT S, PLLC HIGH SEVERITY& THREAT [facility] - 6 6 [facility] - 6 6 [facility] T EMERGENCY 56281 [facility] 6 6 [facility] DEPARTMEN INC T VISIT MODERATE SEVERITY EMERGENCY 63766 [facility] PHYSICIAN U FLAQUITO VISIT S, [facility] HIGH SEVERITY& THREAT [facility] OFFICE [address] [facility] OUTPATIEN 5 5 ANNELIESE ERIBERTO T VISIT 25 PHYSICIAN MINUTES S OFFICE [address] [facility] OUTPATIEN 5 5 ANNELIESE STEPHANIE T VISIT 25 PHYSICIAN MINUTES [facility] ST - OTHER 5 5 [facility] OFFICE [address] [facility] OUTPATIEN 5 5 ANNELIESE STEPHANIE T VISIT [address] ACCESS 5 5 [facility] EMERGENCY [address] DEPT 5 5 ANNELIESE VISIT [facility] HIGH SEVERITY& THREAT [facility] OFFICE [address] [facility] OUTPATIEN 5 5 ANNELIESE ERIBERTO T VISIT 25 PHYSICIAN MINUTES S OFFICE [address] [facility] OUTPATIEN 5 5 [facility]ELIESE [facility] T VISIT [address] PHYSIC[address] [facility] - OTHER 5 5 [facility] - OTHER 5 5 [facility] ST OFFICE [address] [facility] OUTPATIEN 5 5 ANNELIESE BLADIMIR T VISIT 25 PHYSICIAN MINUTES S
--- OUTSIDE RECORDS SUMMARY | 2017-03-28 22:54 | External Medical Summary Rpt ---
Author Author LISA Quiros, LISA Quiros Organization [employer] Address Unknown Phone Unavailable
--- OUTSIDE RECORDS SUMMARY | 2017-03-28 22:54 | External Medical Summary Rpt ---
Author Author , LISA GONZALEZ Address Unknown Phone [email or web address] Immunization Name Date Rout CVX Reac Dose Comm Prov Is Faci e tion ent ider Refu lity Give sed n Tdap 02-2 Intr [address] , 0-20 amus oric Adso 15 cula al rbed r Info rmat ion - Sour ce Unsp ecif ied PPV2 01-2 Intr [address] 3 9-20 amus oric 15 cula al r Info rmat ion - Sour ce Unsp ecif ied
--- OUTSIDE RECORDS SUMMARY | 2017-03-28 22:54 | External Medical Summary Rpt ---
Author Author , LISA GONZALEZ Address Unknown Phone [email or web address] Immunization Name Date Rout CVX Reac Dose Comm Prov Is Faci e tion ent ider Refu lity Give sed n Tdap 02-2 Intr 115 [address] [place] , 0-20 amus oric Adso 15 cula al rbed r Info rmat ion - Sour ce Unsp ecif ied PPV2 01-2 Intr 33 999 [address] [place] No [place] 3 9-20 amus oric 15 cula al r Info rmat ion - Sour ce Unsp ecif ied
[2017-03-28 23:43] LABS: HEMOGLOBIN 12.7 g/dL (14.1-18.0); LYMPH # 2.6 K/mm3 (0.7-4.5); LYMPH % 23.1 % (10-50)
[2017-03-29 00:08] LABS: BUN 29 mg/dL (7-18)
[2017-03-29 00:15] LABS: GFR (ESTIMATED) 50 ML/MIN (>60)
--- NOTE | 2017-03-29 00:44 | Emergency Room Report ---
History of Present Illness Time Seen by [id number] Presenting Problem in Triage Pt arrived:Walked Presenting Problem:STOMACH PAIN AND NAUSEA ALL DAY. STATES HE IS CONSTIPATED ALSO. HAS BEEN HAVING SHOOTING PAINS IN HIS COLLAR BONE. 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 N Clinical Suspician of Infection? N Mental Status: 1 - Regular (Normal Baseline) Sepsis Risk:Possible Sepsis Risk Have you (or family members/close friends) recently traveled outside the [place]? N If Yes, where/when: Have you had exposure to infectious disease within the past month? TB? Other? Specify: Source patient, RN notes reviewed, family, old records Exam Limitations no limitations Comment upper abd pain with nausea over the last few days with no chest pain and no melena and no chest pain Cardiac Chest Pain Chest pain indicative of cardiac No Timing/Duration this evening Severity moderate ALLERGIES Coded Allergies: codeine (Mild, ITCHING 05/07/16) Home Medications Reported Medications Atorvastatin Calcium 10 MG PO QHS #90 Metformin HCL (Metformin) 1,000 MG PO BID Sitagliptin Phosphate (Januvia 100MG) 100 MG PO DAILY #30 Allopurinol 300 MG PO DAILY #30 Omeprazole (Omeprazole 20MG) 20 MG PO DAILY Glipizide 10 MG PO TID #90 Carvedilol (Carvedilol 25MG) 25 MG PO BID #180 ASPIRIN (Aspirin) 81 MG PO DAILY Loratadine (Loratadine 10MG Tablet) 10 MG PO DAILY PRN ALLERGIES Furosemide 80 MG PO BID #180 Spironolactone (Spironolactone) 50 MG PO BID Tramadol Hcl (Tramadol 50MG) 50 MG PO 5X A DAY Pregabalin (Lyrica 50MG) 50 MG PO TID Losartan Potassium (Losartan 100MG) 25 MG PO DAILY Testosterone Cypionate (Depo-Testost 200MG/Ml Inj.,1ML) 200 MG IM MONTHLY History Medical History General CAD? Yes Angina: Yes CT: Yes Hypertension? Yes Hyperlipidemia? Yes CHF? Yes DVT? No PE? No COPD? Yes Asthma? Yes Anemia? No GERD? Yes Gastric ulcers? No GI Bleed? No Hernia? No Thyroid Problems? No Hypothyroidism? No CVA? No Seizures? No Diabetes? Yes Insulin Dependent: No Insulin Pump: No Home FSBS? Yes Renal Insuffiency? No End Stage Renal Disease? No UTI? No Stones? No BPH? No GB Disease: No Nephritic Syndrome? No Asplenia? No Hepatitis? No Sickle Cell Disease? No Arthritis? Yes Migraines? No Cataracts? No Glaucoma? No MRSA? No HIV? No TB? No Anxiety? Yes Depression? No Cancer? No More? Yes Additional hx: PACEMAKER/DEFIBRILLATOR, CABG Immunization Hx DT/Tetanus 08-07-07 Flu LAST YEAR Pneumonia NEVER Surgical Hx Previous Surgery?Y L FOOT TRIPLE BIPASS 2013 PACEMAKER/DEFIBRILATOR Family History Family Hx Diabetes Yes CAD Yes Hypertension Yes Hyperlipidemia Yes Cancer Yes TB No Social History Smoking Hx Smoker: Former Smoker Tobacco: No Type Chew Packs/day 1 1/2 - 2 Packs Alcohol Alcohol: No Drugs none Review of Systems All Other Systems Reviewed and Negative Constitutional denies fever Eyes denies drainage ENT denies: ear discharge, epistaxis, throat pain. Respiratory denies cough, denies shortness of breath Cardiovascular denies chest pain, denies palpitations, denies syncope Gastrointestinal see HPI, abdominal pain, nausea Genitourinary denies: dysuria, frequency, hesitancy. Musculoskeletal denies back pain, denies joint pain, denies neck pain Skin denies rash Psychiatric/Neurological denies headache, denies seizure Physical Exam Vital Signs Vital Signs Date Time Temp Pulse Resp B/P Pulse O2 O2 Flow FiO2 Ox Delivery Rate 03/29 0033 89 16 106/67 92 03/28 2324 97 16 119/77 98 03/28 2225 98.5 98 20 119/74 99 - WBC >12,000 or <4,000 or 10% bands? 2 or more SIRS Criteria Met? B/P:106/67 MAP:89 Creatinine >2.0? UA output<0.5ml/kg/hr for 2 hrs? Platelet count >100,000? Lactate >2.0mmol/1? INR >1.2 or PTT > than 60 sec? Evidence of Organ Dysfunction? Provider documented clinical suspician of infection? N Sepsis Criteria Count: 2 Sepsis Risk: Possible Sepsis Risk General Appearance no apparent distress Eye Exam - bilateral eye PERRL, bilateral eye EOMI Ear, Nose, Throat normal ENT inspection Neck supple Respiratory Status No: respiratory distress. Lung Sounds bilateral: lungs clear. Cardiovascular regular rate/rhythm, systolic murmur Peripheral Pulses Pulses normal Yes Gastrointestinal soft, no organomegaly, no pulsatile mass, no guarding, no rebound, tenderness Back no CVA tenderness Extremities normal inspection Strength 4 Upper Ext (L), 4 Upper Ext (R), 4 Lower Ext (L), 4 Lower Ext (R) Neurologic alert, coremaker floor II-XII nml as tested, no motor/sensory deficits Reflexes Reflexes normal No Mental status normal mood/affect Skin intact Medical Decision Making LABS/Meds/Orders Pt receiving controlled substance in ED? No Results/Orders Laboratory Tests 03/28/170: Amylase 57, Lipase 203 03/28/17 2320: Sodium 138, Potassium 4.0, Chloride 98, Carbon Dioxide 32, BUN 29 H, Creatinine 1.5 H, Estimated Creat Clear 134, Estimated GFR (MDRD) 50, Glucose 199 H, Calcium 9.2, Total Bilirubin 0.4, AST 15, ALT 26, Alkaline Phosphatase 136 H, Creatine Kinase 85, CK-MB (CK-2) Rel Index 1.2, CK and CKMB Interp 1.0, Troponin I < 0.02, Total Protein 8.0, Albumin 3.5, Globulin 4.5 H, Albumin/Globulin Ratio 0.8 L, WBC 11.5 H, RBC 4.07 L, Hgb 12.7 L, Hct 39.2 L, MCV 96.1, RDW 13.7, Plt Count 161, MPV 9.8, Gran % 70.9, Gran # 8.1 H, Lymphocytes % 23.1, Monocytes % 4.9, Eosinophils % 0.9, Basophils % 0.3, Lymphocytes # 2.6, Monocytes # 0.6, Eosinophils # 0.1, Basophils # 0.0, PUBS MCHC 32.5, MCH 31.2 Orders Procedure Date/time Status DIET-NOTHING BY MOUTH 03/[address] ABD & PELVIS W/O CONTRAST 03/[address] ABD/PELVIS REQ 03/28 2246 Active LIPASE 03/28 2246 Complete AMYLASE 07/16 2246 Complete ELECTROCARDIOGRAM REQUEST 03/28 2236 Active CHEST(2 VIEWS-NOT PORTABLE) 03/28 2236 Active CBC WITH AUTO DIFF 03/28 2236 Complete CARDIAC ENZYMES 03/28 2236 Complete CHEM 12 PROFILE 03/28 2236 Complete 12 LEAD EKG-TREVOR (INITIAL) 03/28 UNK Active CM/EKG CM/transitions rn care coordinator Rhythm Normal Sinus Rhythm EKG compared w/(date of old), non-spec. ST/Twave chgs XRAY/CT/US XRAY/CT/US 1 XRAY chest XR interpretation by reviewed by me Xray Results abnormal (cm) XRAY/CT/US 2 CT abdomen, pelvis CT interpretation by discussed w/radiologist Time results known: 45 CT Results abnormal (see report) Departure Departure Time of Disposition 42 Disposition DC Home or Self Care(routine) Clinical Impression Primary Impression: Abdominal pain Qualifiers: Abdominal location: upper abdomen, unspecified Qualified Code: R10.10 - Upper abdominal pain, unspecified Condition STABLE Referrals PAMELLA RUIZ (PCP/Family) Patient Instructions DI for Abdominal Pain-Adult Additional Instructions see pcp about gb eval Discharge Counseling Counseled pt/family regarding diagnosis, test results, follow up needs ED Critical Care Critical Care No at [id number]
[2017-03-29 00:56] VITALS: BP 115/75
--- NOTE | 2017-03-29 08:16 | RADIOLOGY REPORT PS360 ---
CHEST(2 VIEWS-NOT PORTABLE) HISTORY: PAIN IN UPPER ABDOMEN ORDERING PHYSICIAN: Olivia Almazan MD PATIENT AGE: 51 years COMPARISON: 09/29/2016 FINDINGS: Prior CABG. Mild cardiomegaly without failure with dual-chamber pacemaker present.. The lungs are clear without infiltrates, suspicious nodules, or pleural effusions. No acute bony abnormalities. IMPRESSION: Cardiomegaly, prior CABG with pacemaker present, no change with no acute finding
--- NOTE | 2017-03-29 09:16 | RADIOLOGY REPORT PS360 ---
CT ABD PELVIS W/O CONTRAST CLINICAL INDICATION: UPPER ABDOMINAL PAIN ORDERING PHYSICIAN: Olivia Almazan MD PATIENT AGE: 51 years COMPARISON: 12/02/2015 TECHNIQUE: Axial images obtained with sagittal and coronal reformats. PROCEDURE: Oral Contrast: None IV Contrast: None . FINDINGS: Lung bases are clear. Artifact is present cardiac pacemaker device. The liver, gallbladder, spleen, adrenal glands, and pancreas have an unremarkable unenhanced CT appearance. There is mild stranding of the perinephric renal fat bilaterally. This is nonspecific. No hydronephrosis. No renal calculus or ureteral calculus evident. No intestinal obstruction or free air. Unremarkable appendix. No evidence of appendicitis. No pelvic mass or abnormal fluid collection. Unremarkable urinary bladder. There is a small umbilical hernia containing fat is minimal amount of small bowel. Grade 1 spondylitic spondylolisthesis with degenerative disc disease L5-S1. IMPRESSION: 1. No acute intra-abdominal or pelvic pathology apparent. 2. Small umbilical hernia containing fat and a knuckle of small bowel without obstruction
== END 2017-03-29 00:57 | disposition home or self-care (01) ==
LOC: ER 22:19
PROVIDERS: Emergency Medicine
DX: R10.10 Upper abdominal pain, unspecified (principal); I25.10 Atherosclerotic heart disease of native coronary artery without angina pectoris; I10 Essential (primary) hypertension; J44.9 Chronic obstructive pulmonary disease, unspecified; K21.9 Gastro-esophageal reflux disease without esophagitis; Z87.891 Personal history of nicotine dependence